=== PATIENT | female | born 1960 | race Caucasian/White ===

== ENCOUNTER → 2025-01-23 07:05 | Outpatient (REF) | payer OTHER, SELFPAY | LOC: WDC 07:05 | PROVIDERS: ATTENDING PHYSICIAN Internal Medicine | DX: Z12.39 Encounter for other screening for malignant neoplasm of breast (principal); Z12.31 Encounter for screening mammogram for malignant neoplasm of breast | CPT/HCPCS: 77063; 77067 ==

== ENCOUNTER 2025-01-26 06:27 | Day surgery (SDC) | payer OTHER, SELFPAY | END 2025-01-26 12:08 | disposition home or self-care (01) | LOC: GI 06:27 | PROVIDERS: ATTENDING PHYSICIAN Internal Medicine Gastroenterology | DX: Z12.11 Encounter for screening for malignant neoplasm of colon (principal); K57.30 Diverticulosis of large intestine without perforation or abscess without bleeding; K64.0 First degree hemorrhoids; D12.5 Benign neoplasm of sigmoid colon; K63.5 Polyp of colon | CPT/HCPCS: 45385; 45380; 88305 ==

== ENCOUNTER → 2025-04-02 10:22 | Outpatient (REF) | payer OTHER, SELFPAY | LOC: RAD 10:22 | PROVIDERS: ATTENDING PHYSICIAN Internal Medicine | DX: R13.10 Dysphagia, unspecified (principal) | CPT/HCPCS: 74221 ==

== ENCOUNTER 2025-04-16 06:25 | Day surgery (SDC) | payer OTHER, SELFPAY | END 2025-04-16 14:43 | disposition home or self-care (01) | LOC: GI 06:25 | PROVIDERS: ATTENDING PHYSICIAN Internal Medicine Gastroenterology | DX: C15.5 Malignant neoplasm of lower third of esophagus (principal); R13.10 Dysphagia, unspecified; K44.9 Diaphragmatic hernia without obstruction or gangrene | CPT/HCPCS: 43239; 88305 ==

== ENCOUNTER → 2025-04-18 08:03 | Outpatient (REF) | payer OTHER, SELFPAY | LOC: RAD 08:03 | PROVIDERS: ATTENDING PHYSICIAN Internal Medicine Gastroenterology; FAMILY PHYSICIAN Internal Medicine | DX: K22.89 Other specified disease of esophagus (principal) | CPT/HCPCS: 71260; 74177; Q9967 ==

== ENCOUNTER 2025-04-26 06:20 | Day surgery (SDC) | payer OTHER, SELFPAY ==
[2025-04-26 12:44] VITALS: BMI 26.4
[2025-04-26 12:49] VITALS: BP 140/85; BMI 26.4
[2025-04-26 17:02] VITALS: BP 132/82
[2025-04-26 17:15] VITALS: BP 143/74
[2025-04-26 17:30] VITALS: BP 157/85
[2025-04-26 17:45] VITALS: BP 143/66
== END 2025-04-26 17:57 | disposition home or self-care (01) ==
LOC: SDS 06:20
PROVIDERS: ATTENDING PHYSICIAN Internal Medicine Gastroenterology; FAMILY PHYSICIAN Internal Medicine
DX: C15.4 Malignant neoplasm of middle third of esophagus (principal); R59.0 Localized enlarged lymph nodes
CPT/HCPCS: 43259

== ENCOUNTER → 2025-05-02 13:19 | Outpatient (REF) | payer OTHER, SELFPAY ==
[2025-05-02 15:39] LABS: Blood Urea Nitrogen 10 mg/dl (7-17); Calcium 9.6 mg/dl (8.4-10.2); Carbon Dioxide 26 mmol/L (22-30); Chloride 102 mmol/L (98-107); Glucose 96 mg/dl (70-99); Potassium 4.3 mmol/L (3.5-5.1); Sodium 137 mmol/L (135-145); eGFR > 60.00
== END ==
LOC: REG 13:19
PROVIDERS: ATTENDING PHYSICIAN Physician Assistant; FAMILY PHYSICIAN Internal Medicine
DX: C15.9 Malignant neoplasm of esophagus, unspecified (principal)
CPT/HCPCS: 36415; 71260; 80048; Q9967

== ENCOUNTER 2025-09-10 08:16 | Inpatient (IN) | payer OTHER, SELFPAY ==
[2025-09-07] VITALS (9 sets, daily range): BP systolic 93–133; BP diastolic 57–82; BMI 27.1
[2025-09-07] MEDS: DILAUDID 1 MG IV ×3 (06:52→21:08)
[2025-09-07] MEDS: VALIUM INJECTION 5 MG IV (06:52)
--- NOTE | 2025-09-07 06:54 | ED.GENMED ---
History of Present Illness
General
Chief Complaint: Back Pain
Time Seen by Provider: 09/07/25 06:36
History of Present Illness
History of Present Illness:
64-year-old female with history of esophageal carcinoma status post chemo and esophagectomy 3 weeks ago with J-tube in place presenting to the emergency department for diffuse back pain. Patient notes that she has had intermittent coughing issues
after her esophagectomy and prior to arrival had a coughing fit. She then subsequently had diffuse back pain, which is her reason for visit to the emergency department today. She did not take any pain medications prior to arrival. She reports
diffuse bilateral back pain and chest wall pain. Denies abdominal pain or difficulty breathing. Notes that she had been taking Dilaudid in the hospital for postoperative pain. She took tramadol prior to arrival without relief. Denies fever.
Denies focal weakness or numbness to her extremities. Denies issues with defecation or urination. Denies additional acute medical complaints.
Phy Exam
Physical Exam
Physical Exam:
General: Well-appearing, no clinical signs of dehydration, nontoxic and in no acute distress
HEENT: protecting airway
Neck: appears supple
CV: Normal heart rate, tachycardic
Resp: No accessory muscle use, no increased work of breathing, lungs clear to auscultation bilaterally
Abd: Soft and non-distended, no tenderness to palpation, J-tube in place
Extremities: No deformities, no swelling. Diffuse tenderness to palpation of the thoracic back. Minimal midline tenderness with focal tenderness to the musculature. Generalized chest wall tenderness on palpation. No crepitus. No overlying skin
changes.
: deferred
Rectal: deferred
Psych: Normal affect
Skin: Intact
Course
Orders/Labs/Results
Orders:
Orders
09/07/25 06:41
Electrocardiogram (*1) Urgent
Reason for Study: Chest Pain
EKG- Treatment ONCE
HYDROmorphone [Dilaudid] 1 mg IV NOW STA
diazePAM [Valium Injection] 5 mg IV NOW STA
09/07/25 07:28
CT Chest PE Study Urgent
Comment:
Reason For Exam: diffuse chest and back pain
09/07/25 07:54
Complete Blood Count/With Diff Urgent
09/07/25 08:28
Comprehensive Metabolic Panel Urgent
09/07/25 09:54
HYDROmorphone [Dilaudid] 1 mg IV NOW STA
Abnormal Lab Results
09/07/25 09/07/25
07:54 08:28
WBC 14.3 H 10^3/uL
(4.8-10.8)
RBC 3.43 L 10^6/uL
(4.20-5.40)
Hgb 10.4 L g/dL
(12.0-16.0)
Hct 31.5 L %
(37.0-47.0)
RDW 16.5 H %
(11.5-14.5)
Abs Immat Gran (auto) 0.1 H 10^3/uL
(0-0.05)
Absolute Neuts (auto) 13.5 H 10^3/uL
(1.4-6.5)
Absolute Lymphs (auto) 0.1 L 10^3/uL
(1.2-3.4)
Neutrophils % 94.5 H %
(42.2-75.2)
Lymphocytes % 0.9 L %
(20.5-51.1)
Sodium 130 L mmol/L
(135-145)
Chloride 96 L mmol/L
(98-107)
Creatinine 0.5 L mg/dL
(0.6-1.0)
Glucose 153 H mg/dl
(70-99)
09/07/25 07:54
09/07/25 08:28
Vital Signs
Initial and Last Documented VS:
Initial Vital Signs
Temp Pulse Resp BP Pulse Ox
98.7 F 143 26 133/82 93
09/07/25 06:13 09/07/25 06:13 09/07/25 06:13 09/07/25 06:13 09/07/25 06:13
Last Documented Vital Signs
Temp Pulse Resp BP Pulse Ox
98.7 F 135 41 100/60 95
09/07/25 06:13 09/07/25 10:25 09/07/25 07:00 09/07/25 07:00 09/07/25 09:04
MDM/Problems Addressed
MDM/Problems Addressed:
64-year-old female with history of esophageal carcinoma status post esophagectomy 3 weeks ago presenting for diffuse back pain after a coughing fit. Vital signs on arrival are significant for tachycardia, however patient uncomfortable on arrival
secondary to pain.
On exam, patient is in no acute distress. Regarding patient's presenting back pain, ultimately suspect muscle spasm and musculoskeletal strain. Notes that it starting after a coughing fit, which she has had issues with since her esophagectomy. No
acute respiratory distress. No focal tenderness with diffuse tenderness to the thoracic musculature. Minimal tenderness to the midline thoracic spine. No step-offs. No tenderness to the abdomen. Mild generalized tenderness to the chest wall.
No overlying skin changes. No crepitus. Patient is requesting Dilaudid for pain. Will start with Dilaudid and Valium for suspected spasming component. Will obtain x-ray of the thoracic spine and chest x-ray and continue to monitor for any
improvement.
07:30 -Dr. Alfonso from [facility] called about patient, thoracic fellow. She at this time is advising CT PE study. Feel reasonable given postop history. Additionally, presenting tachycardia, however do suspect more of pain response.
10:55 - CT of the chest without PE, however there is mention of bilateral pleural effusions and compressive atelectasis. Images were sent to attending physician and case discussed directly with attending physician, Dr. Heather Mckenzie. She does not feel
that the collections are significantly changed from prior. However, patient remains tachycardic and oxygen dependent. Again could be related to pain medication, versus fluid status with atelectasis. Recommendation is for observation admission
overnight. If symptoms persist, may indicate need for transfer to [facility], however [facility] and Dr. Mckenzie will continue to follow. Patient and daughter updated.
*Pulse Oximetry
SaO2: 93
Oxygen Mode of Delivery: Room air
Patient hypoxic: no
*Critical Care Note
Total Time (30-74mins, 75-104mins- exclusive of procedures): 62
comment:
The high probability of a clinically significant, sudden or life threatening deterioration of the cardiopulmonary system(s) required my full and direct attention, intervention and personal management. The aggregate critical care time was 62 minutes.
This time is in addition to time spent performing reported procedures but includes the following:
[x] Data Review and interpretation
[x] Patient assessment and monitoring of vital signs
[x] Documentation
[x] Medication orders and management
ED Attending Note
-
Portions of this chart may have been created with voice recognition software.� Occasional wrong word or��sound alike� substitutions may have occurred due to the inherent limitations of voice recognition software.
Discharge Plan
Departure
Patient Disposition: Admit
Date of Disposition: 09/07/25
Time of Disposition: 11:19
Presentation/result/management discussed w/ accepting MD/DO: Hospitalist
Patient with high blood pressure during this ER visit?: No
Condition: Fair
Discharge Problem:
Back pain, Pleural effusion
Referrals:
Bryan Fulton DO [Family Provider, Internal Medicine]
Interventions
Interventions:
*Risk Screen - Suicide Last Done: 09/07/25 06:17
*General Assessment Last Done: 09/07/25 06:17
*Neglect/Abuse Screening Last Done: 09/07/25 06:17
*ED- Fall Risk Assessment Last Done: 09/07/25 06:17
*ED COVID-19 Vaccine History Last Done: 09/07/25 06:17
*ED Influenza Vaccine History Last Done: 09/07/25 06:17
Discharge Date and Time
Print Language: SWEDISH
[2025-09-07 08:04] LABS: Hematocrit 31.5 % (37.0-47.0); Hemoglobin 10.4 g/dL (12.0-16.0); Mean Corp Hgb Conc. 33.0 g/dL (33.0-37.0); Mean Corpuscular Volume 91.8 fL (81.0-99.0); Nucleated Red Blood Cells % 0 %; Platelet Count 317 10^3/uL (130-400); Red Cell Dist. Width 16.5 % (11.5-14.5)
[2025-09-07 08:56] LABS: ALT (SGPT) 16 U/L (0-35); AST (SGOT) 17 U/L (14-36); Albumin 3.6 g/dl (3.5-5.0); Alkaline Phosphatase 67 U/L (38-126); Blood Urea Nitrogen 16 mg/dl (7-17); Calcium 9.0 mg/dl (8.4-10.2); Carbon Dioxide 27 mmol/L (22-30); Chloride 96 mmol/L (98-107); Estimated Creatinine Clearance 89 ml/min; Glucose 153 mg/dl (70-99); Potassium 4.2 mmol/L (3.5-5.1); Sodium 130 mmol/L (135-145); Total Protein 6.5 g/dl (6.3-8.2); eGFR > 60.00
--- NOTE | 2025-09-07 12:16 | HPS.HSE ---
Family Physician
-
Family Physician: Bryan Fulton
Chief Complaint
-
Chest/Back Pain
History of Present Illness
Ragini is a 64 year old female with a past medical history of invasive SCC of the esophagus, s/p chemo/radiation (finished July 13 2025) and 3 weeks s/p esophagectomy at [facility], J-tube placement in May 2025, h/o Afib during chemotherapy
(previously on Amiodarone; no discontinued), post-op BL pleural effusions who presented to the [facility] with concerns for acute chest/back pain that started last night.
She reports that ever since her esophagectomy 3 weeks ago she has had a chronic cough, productive of clear, frothy discharge. Prior imaging was done with Dr. Mckenzie at [facility] and there were no concerns expressed at that time. During that time she had no
complaints of fevers, chills, trouble breathing, or other systemic symptoms. She had never coughed up blood. She has been sleeping at a 45 degree angle per her surgeon. Then, she woke up in the early AM on 09/07 with gagging, retching, and multiple
episodes of small volume vomitus that was clear, frothy, non-purulent/mucoid, and nonbloody. She felt pain in her chest and back bilaterally, that was worse on the L compared to the R. The pain was 10/10, throbbing in nature and diffuse. She had no
shortness of breath at that time. She took one tramadol which did not help at all, after which she presented to the ED.
On arrival to the ED she was afebrile, normotensive, with tachycardia, tachypnea, and hypoxia. she was placed on O2 NC up to 6L. She was given po Valium/IV Dilaudid which helped some. [facility] team was contacted and CT PE was recommended. CT PE was
negative for PE, showing BL pleural effusions (stable per independent read by [facility] Dr. Heather Mckenzie). ECG was done which showed sinus tachycardia. She had mild leukocytosis of 14.3, Na 130, mild anemia of 10.4. Pain reduced to 6/10.
Of note, she has been eating soft/bite sized food per oral with supplemental tube feeds without issue or prior concern for aspiration. She was seen by solar energy specialist one week prior who had no concerns. There are no concerns for dysphagia, odynophagia.
Medical History
Past Medical History
Past Medical History: Reports Arrhythmia (had episode of afib during cancer tx -- resolved) and Cancer (s/p esophagectomy 3 weeks ago)
Past Surgical History: Reports Appendectomy
Additional Past Surgical History:
Esophagectomy, J-tube placement, Melanoma removal
Social History
Tobacco: Non-smoker
Alcohol: None
Drug: None
Personal:
Living: With Family
Family History
Family History: Not pertinent
Allergies / Home Medications
Allergies reflects when Allergies were last updated in [facility].
Home Medications with original date entered in [facility]
Allergy/Medication List:
Allergies
Allergy/AdvReac Type Severity Reaction Status Date / Time
meperidine Allergy Rash Verified 09/07/25 06:30
morphine Allergy Rash Verified 09/07/25 06:30
oxycodone Allergy Rash Verified 04/26/25 12:40
Home Medications
famotidine 40 mg/5 mL (8 mg/mL) oral suspension 20 mg feeding tube DAILY Gastrointestinal Issue 09/07/25
polyethylene glycol 3350 17 gram oral powder packet (Miralax) 17 g feeding tube DAILY Constipation 09/07/25
tramadol 50 mg tablet 50 mg feeding tube QIDPRN PRN moderate pain 09/07/25
Review of Systems
-
History Source: Patient
A 12 point ROS was completed and negative except as noted: Yes
Constitutional: Denies Fever, Weight Loss, Night Sweats or Chills
EENT: Reports No Symptoms
Respiratory: Reports Cough (productive of clear, frothy sputum, nonbloody); Denies Hemoptysis or Trouble Breathing
Cardiac: Reports Chest Pain; Denies Diaphoresis, Palpitations or Syncope
Abdomen/GI: Reports Vomiting; Denies Abdominal Pain, Nausea, Diarrhea, Constipated or Black Stools
: Reports No Symptoms
Musculoskeletal: Reports No Symptoms
Skin: Reports No Symptoms
Neurological: Reports No Symptoms
Endocrine: Reports No Symptoms
Hematologic/Lymphatic: Reports No Symptoms
Psych: Reports No Symptoms
Physical Exam
Vital Signs
Vital Signs
Temp Pulse Resp BP Pulse Ox
98.7 F 137 39 102/62 97
09/07/25 06:13 09/07/25 11:30 09/07/25 11:30 09/07/25 11:00 09/07/25 11:30
Physical Exam
General: Well Developed, Well Nourished, Appears in Distress and Pain; No Respiratory Distress or Chills
HEENT: NormoCephalic, Anicteric, Atraumatic, PERRLA, Cleona Conjunctivae, No Ptosis, Nose Appears Normal, Ears Appear Normal and Oxygen
Respiratory: Non Labored Respirations and Other (clear anteriorly with no wheezing, rales, rhonchi. Tenderness to lower-rib cage; pain worse with deep breaths BL.)
Cardiac: S1/S2, Regular Rhythm and Tachycardia; No Irregular Rhythm, Murmur, Rub or Peripheral Edema
Breast: Deferred by me
GI: Soft, Non Tender, Non Distended, Normal Bowel Sounds and Peg Tube (J tube)
Rectal: Deferred by Provider
Genito-urinary: Deferred by me
Musculoskeletal: No Clubbing, No Cyanosis and No Edema
Skin: Warm, Dry and IV/Catheter Site
Neuro: AO x 3
Psych: Calm and Intact Judgment/Insight
Laboratory Results
-
09/07/25 07:54
09/07/25 08:28
Laboratory Results
Total Bilirubin 0.8 mg/dl (0.2-1.3) 09/07/25 08:28
AST 17 U/L (14-36) 09/07/25 08:28
ALT 16 U/L (0-35) 09/07/25 08:28
Alkaline Phosphatase 67 U/L (38-126) 09/07/25 08:28
Impression/Plan
-
Ragini is a 64 year old female with a past medical history of invasive SCC of the esophagus, s/p chemo/radiation (finished July 13 2025) and 3 weeks s/p esophagectomy at [facility], J-tube placement in May 2025, h/o Afib during chemotherapy
(previously on Amiodarone; no discontinued), post-op BL pleural effusions who presented to the [facility] with concerns for acute intractable chest/back pain associated with gagging/retching, found to be hypoxic requiring 6L NC.
#Acute Hypoxic Respiratory Insufficiency
Most likely secondary to tachypnea and shallow breaths due to pain
- requiring 6L NC on admission
- wean as tolerated for O2 sat 90%
- infectious workup pending
- COVID/Flu/RSV ordered
- pro tyrel pending
- no indication for abx at this time
#BL Pleural Effusions
Present on admission CT imaging, subacute/post surgical, may have new infectious component
- Leukocytosis -- most likely reactive to pain; infectious workup pending
- no prior history of CHF -- will obtain echo
#Intractable Chest/Back Pain
DDX include MSK related vs. Tawny-Sauer vs. PNA vs. dissection vs. ACS vs. other
- CT PE negative
- ACS unlikely
- ECG showing sinus tach
- trops pending
- Echo ordered
- proBNP ordered
- will increase to 1.5mg dilaudid q4hprn for severe pain, home tramadol for moderate pain
- will try dose of Flexeril given probable msk component
- will add heating pad
- if pain does not improve, may transfer to [facility]
#Esophageal SCC
#J-tube Placement
s/p esophagectomy x3 weeks ago, s/p chest wall radiation & systemic chemotherapy x6 weeks
- Known to Dr. Heather Mckenzie at [facility]
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
- will order speech eval to r/o aspiration
- keep head of bed to 45 degrees
- IDDSI 6 soft/bite sized for now
- c/w supplemental tube feeds; family can bring in their own
- c/w home famotidine/miralax via tube
#Anemia, likely of chronic disease vs. MARCELLA vs. Other
- hgb 10.4, no signs of active bleeding
- observe CBC, transfuse prn
- follow up OP with oncology/PCP
Code Status: Full Code
DVT PPx: Lovenox SC
[2025-09-07 13:14] LABS: Troponin I 0.017 ng/ml
[2025-09-07 13:24] LABS: COVID-19 Antigen Negative (Negative)
[2025-09-07] MEDS: DILAUDID 1.5 MG IV ×2 (13:32→17:39)
[2025-09-07] MEDS: NSS 1000 IV (13:37)
[2025-09-07] MEDS: FLEXERIL 5 MG PO (14:13)
[2025-09-07 14:45] LABS: Procalcitonin 16.16 ng/ml (0.0-0.25)
--- NOTE | 2025-09-07 15:23 | CON.PUL ---
Consultation
Consultation Request
Date/Time Consultation Requested: 09/07/25
Date/Time Consultation Performed: 09/07/25
Performing Provider: Nery
Reason for Consultation: Effusions
Medical History
-
History of Present Illness:
64-year-old female with history of recently diagnosed esophageal squamous cell carcinoma s/p esophagectomy/J tube at [facility] (follows with Dr. Heather Mckenzie), melanoma resection x 2, presenting to ER with a complaint of diffuse back
pain.� States that she has had intermittent coughing issues since her esophagectomy with a significant episode of coughing prior to arrival.� She had been exclusively using J-tube since May but in the past week her diet was advanced. There had
been some coughing observed with sip trials by the RN.
In the ED, was noted to be tachycardic and hypoxemic requiring 6 L O2 though otherwise afebrile and stable.� Initial labs with WBC 14.3, hemoglobin 10.4, sodium 130, chloride 96.� ECG with sinus tachycardia, right sided intraventricular conduction
delay and T wave inversions in the anterolateral leads.� CT PE protocol without signs of pulmonary emboli, showed signs of subsegmental atelectasis and small bilateral effusions unchanged from previous studies, mild anterior pericardial thickening.
Was ordered IV fluids and given 5 mg diazepam and 1 mg IV Dilaudid in the ED. Admitted to for presumed PNA.
Past Medical History
Past Medical History: Other (see list below)
Social History
Tobacco: Non-smoker
Alcohol: None
Drug: None
Family History
Family History: Reviewed & Not Pertinent
Allergies / Home Medications
Allergies
Allergy/AdvReac Type Severity Reaction Status Date / Time
meperidine Allergy Rash Verified 09/07/25 06:30
morphine Allergy Rash Verified 09/07/25 06:30
oxycodone Allergy Rash Verified 04/26/25 12:40
Home Medications
�Medication �Instructions �Recorded �Confirmed �Last Taken �Type
famotidine 40 mg/5 mL (8 mg/mL) 20 mg feeding tube DAILY 09/07/25 09/07/25 Unknown History
oral suspension Gastrointestinal Issue
polyethylene glycol 3350 17 gram 17 g feeding tube DAILY 09/07/25 09/07/25 Unknown History
oral powder packet (Miralax) Constipation
tramadol 50 mg tablet 50 mg feeding tube QIDPRN PRN 09/07/25 09/07/25 09/07/25 History
moderate pain
Review of Systems
-
History Source: Patient and Family
All other systems: Negative unless noted
Vitals / Labs / Diagnostic Testing
Vital Signs
Temp Pulse Resp BP Pulse Ox
98.0 F 141 19 113/79 95
09/07/25 15:04 09/07/25 15:04 09/07/25 15:04 09/07/25 15:04 09/07/25 15:04
Lab Data
09/07/25 07:54
09/07/25 08:28
Microbiology
09/07/25 12:26 Nasal Swab Influenza Types A & B (AG) - Final
Negative for Influenza A & B, NAAT
Negative results must be combined with clinical observations
and patient history.
Nucleic Acid Amplification test (NAAT)performed on the
[employer] ID NOW platform.
09/07/25 12:26 Nasal Swab Respiratory Syncytial Virus Ag - Final
Negative for Respiratory Syncytial Virus.
A false negative result may be obtained with a specimen
collected early in the acute phase. If symptoms persist, a
new specimen should be tested.
Diagnostic Testing:
Physical Exam
-
HEENT: Normocephalic, Anicteric and Moist Mucous Membranes
Cardiovascular: S1/S2 and Regular Rhythm
Respiratory: Clear, Non-Labored Respirations and Other (decreased at bases)
GI: Soft, Non Distended and Non Tender
Neurology: Awake, Alert and Other (Lethargic)
Skin: Warm and Dry
General: Comfortable and Other (NAD)
Assessment
-
64-year-old female with history of recently diagnosed esophageal squamous cell carcinoma s/p esophagectomy/J tube at [facility] (follows with Dr. Heather Mckenzie), melanoma resection x 2, presenting to ER with a complaint of diffuse back
pain.� States that she has had intermittent coughing issues since her esophagectomy with a significant episode of coughing prior to arrival.� She had been exclusively using J-tube since May but in the past week her diet was advanced. There had
been some coughing observed with sip trials by the RN. In the ED, was noted to be tachycardic and hypoxemic requiring 6 L O2 though otherwise afebrile and stable.� Initial labs with WBC 14.3, hemoglobin 10.4, sodium 130, chloride 96.� ECG with
sinus tachycardia, right sided intraventricular conduction delay and T wave inversions in the anterolateral leads.� CT PE protocol without signs of pulmonary emboli, showed signs of subsegmental atelectasis and small bilateral effusions unchanged
from previous studies, mild anterior pericardial thickening. Was ordered IV fluids and given 5 mg diazepam and 1 mg IV Dilaudid in the ED. Admitted to for presumed PNA.
Acute hypoxic respiratory failure, O2 alta 84%
Acute on chronic cough
Back and chest discomfort
BL Effusions w/ compressive atelectasis
Elevated proBNP, Leukocytosis, r/o PNA--suspect aspiration
Anemia, likely chronic
Hyponatremia
Hyperglycemia
Conditions present MIDDLE STITCHER
Chronic dysphagia status post EGD 04/26/2025-large fungating/ulcerating mass found in the middle third of the esophagus
Path positive for invasive squamous carcinoma, status post esophagectomy 3 weeks ago
Follows at [facility], status post J-tube
dvt left arm (2000)
visceral tear right eye
melanoma s/p removal 2007,2012
hypertension
hyperlipidemia
Appendectomy
benign breast bx 1976
Plan
Hypoxemia noted on arrival, O2 alta 84%, she is on 6L
No oxygen was needed at baseline, she denies history of lung disease in the past
Given her lethargy, will obtain ABG w/ lactate
Home O2 evaluation
Suspect patient has aspiration PNA, diet advanced 1 week prior to admission
Coughing noted on exam, with sips
CXR/CT obtained indicating bibasilar consolidation w/ compressive atelectasis
Other imaging reviewed from April, but she had recent imaging last week at [facility] per family that was reportedly normal
Keep NPO, Speech eval
Aspiration precautions
Agree with IV abx
Airway clearance measures
Recent esophagectomy 3 weeks prior
Has J-tube in place
Completed at [facility], family has close visits weekly at their offices
The family has concerns about J-tube management and leakagev
Effusions noted, r/o CHF
ProBNP negative on admission
ECHO results pending
Denies any prior known history of lung disease, lifelong non-smoker
H/o DVT in past, CTA neg for PE
DVT ppx
Reviewed case with care team and low threshold for transfer
We will follow
Diagnostic Data
Chest X-Ray:
CT Scan: CHEST 09/07/25- No findings to suggest central pulmonary embolism. Recent prior esophagectomy with gastric pull-up with accompanying large consolidations in the lower lobes bilaterally most likely representing subsegmental atelectasis and
small bilateral pleural effusions. Mild anterior pericardial thickening, cannot exclude tiny pericardial effusion.
05/02/25- Severe circumferential diffuse esophageal wall thickening. This can be seen with esophagitis or a mural mass. Correlation recent biopsy results. Probable small adjacent hematoma along the right lateral wall of the distal esophagus. No
evidence of esophageal leak. Correlation with outside PET/CT report recommended
Echo: pending
PFT's:
Reports and relevant images were personally reviewed.
Total time spent on this consultation __75__ minutes which includes review of history, physical exam, medications, laboratory data, personal review of imaging, extensive review of outpatient records, discussion with care team and respiratory therapy.
[2025-09-07] MEDS: ROCEPHIN 1000 MG IV (16:11)
[2025-09-07] MEDS: STERILE WATER FOR INJECTION 10 ML IV (16:11)
[2025-09-07] MEDS: ZITHROMAX 500 MG TUBE (16:17)
[2025-09-07 16:34] LABS: B.E. 0 mmol/L; HCO3 26.4 mmol/L (21-28); O2 Saturation % 97.5 % (94-98); PCO2 50 mmHg (32-35); PO2 78 mmHg (83-108)
[2025-09-07] MEDS: VENTOLIN NEBULES 2.5 MG INH (16:36)
[2025-09-07 16:48] LABS: Troponin I 0.019 ng/ml
--- NOTE | 2025-09-07 17:00 | PTCARENOTE ---
patient noted to be in sinus tachycardia upon admission to . MD made aware patients heart rate in 130s. Resident and Dr Kapoor both notified that patients heart rate has increased to the 140s and peaking at 150s. No new orders at this time. Patient
resting in bed sating 94% on 6L of NC. No new complaints
[2025-09-07] MEDS: LOVENOX 40 MG SC (17:12)
[2025-09-08] VITALS (8 sets, daily range): BP systolic 93–114; BP diastolic 51–79
[2025-09-08 00:39] LABS: Troponin I 0.023 ng/ml
[2025-09-08] MEDS: VALIUM INJECTION 2 MG IV (00:50)
--- NOTE | 2025-09-08 00:54 | W.PN.UPDATE ---
Addendum entered and electronically signed by WINNIE Wood 09/08/25 06:49:
Hgb down to 8.2 from 10 yesterday. Will add type and screen.
Original Note:
Update Note
Progress Note Update
Called to evaluate Jtube site which is leaking profusely. Tube placed at [facility] and was changed at their office on Wednesday this past week. Lowered TF rate in half for tonight and changed meds to IV form since patient is also NPO due to suspicion of
aspiration PNA. Back pain continues and I added Valium IV prn for back pain/spasm. Heating pad also utilized overnight.
--- NOTE | 2025-09-08 01:09 | PTCARENOTE ---
HABITAT CONSERVATION PLANNER notified @[id number] regarding patient remaining tachy in the 140s. HABITAT CONSERVATION PLANNER also made aware that lactic acid was 2.8 this evening therefore requesting redraw. HABITAT CONSERVATION PLANNER also made aware that patient's JTube was excessively leaking and was reinforced with dsg with
some improvement and was asked to see patient. HABITAT CONSERVATION PLANNER also made aware patient's BP was in the 90s and still complaining of pain and only had prn dilaudid ordered.
HABITAT CONSERVATION PLANNER in to see patient and Jtube site assessed. HABITAT CONSERVATION PLANNER made aware patient mouth was being swabbed with complaints of dry mouth. HABITAT CONSERVATION PLANNER made aware lactic acid was now 3.8- New orders received for STAT IV 2mg Valium to give 0.4ml, prn valium 2 mg 0.4ml q6h,
wound consult for ostomy, NPO ordered with swabs only, Tube feeding rate decreased to 30 ml/hr, tramadol placed on hold, new order for IV Zithromax.
[2025-09-08] MEDS: ZITHROMAX 252.5 MG IV (01:26)
[2025-09-08] MEDS: DILAUDID 1.5 MG IV ×4 (02:59→20:54)
[2025-09-08 04:06] LABS: Troponin I 0.025 ng/ml
[2025-09-08 04:11] LABS: ALT (SGPT) 11 U/L (0-35); AST (SGOT) 14 U/L (14-36); Albumin 2.1 g/dl (3.5-5.0); Alkaline Phosphatase 34 U/L (38-126); Blood Urea Nitrogen 29 mg/dl (7-17); Calcium 6.3 mg/dl (8.4-10.2); Carbon Dioxide 22 mmol/L (22-30); Chloride 107 mmol/L (98-107); Estimated Creatinine Clearance 53 ml/min; Glucose 115 mg/dl (70-99); Potassium 4.0 mmol/L (3.5-5.1); Sodium 133 mmol/L (135-145); Total Protein 4.4 g/dl (6.3-8.2); eGFR > 60.00
[2025-09-08 04:14] LABS: Hematocrit 25.8 % (37.0-47.0); Hemoglobin 8.2 g/dL (12.0-16.0); Mean Corp Hgb Conc. 31.8 g/dL (33.0-37.0); Mean Corpuscular Volume 95.9 fL (81.0-99.0); Platelet Count 229 10^3/uL (130-400); Red Cell Dist. Width 16.0 % (11.5-14.5)
--- NOTE | 2025-09-08 04:22 | PTCARENOTE ---
Addendum entered by Cheli Marie RN 09/08/25 05:23:
RECONCILIATION SPECIALIST notified of critical calcium of 6.3 @0416, IV calcium gluconate 2 gram @100 mls/hr ordered, plan of care continues.
Original Note:
@0139 RECONCILIATION SPECIALIST increased IV fluids to 150 ml/hr. Patient @0250 continues with back pain but did report Valium being helpful. RECONCILIATION SPECIALIST ordered rpt lactic acid @0303 with result of 2.5-
RECONCILIATION SPECIALIST notified of critical calcium of 6.3 @0416, IV calcium gluconate 2 gram @10 mls/hr ordered, plan of care continues.
[2025-09-08] MEDS: NSS 1000 IV ×3 (04:42→16:04)
[2025-09-08] MEDS: CALCIUM GLUCONATE 100 IV ×2 (04:46→10:43)
[2025-09-08 05:16] LABS: Absolute Neutrophils -Man Diff 7.8 10^3/uL (1.4-6.5)
[2025-09-08 05:17] LABS: Normal RBC Morphology No; Platelets Checked Yes
[2025-09-08 05:18] LABS: Macrocytosis 1+; Poikilocytosis 1+; Target Cells 1+
[2025-09-08 05:19] LABS: Anisocytosis 1+; Total Cells Counted 100
[2025-09-08] MEDS: PEPCID 20 MG IV (08:14)
--- NOTE | 2025-09-08 09:13 | VATNOTE ---
Patient with drop in hgb, uncontrolled pain, critical calcium and limited venous access. Patient with need for additional access at this time, discussed risk/benefit of port access with family prior.
--- NOTE | 2025-09-08 09:29 | W.PN.HOSP.TC ---
Today's Communication/Plan
-
Continue ceftriaxone and azithromycin
1 L LR bolus then back to maintenance fluids
Start Flexeril and continue with Dilaudid for pain
IR consult for PEG tube malfunction
Continue with telemetry
Possible IMU upgrade
Assessment / Plan
Assessment / Plan
#Acute hypoxemic and hypercapnic respiratory failure
#Sepsis secondary to aspiration pneumonia
- Presented on room air though throughout ED course had worsening and required 6 L O2
- Status post esophagectomy; recently had diet advanced in the outpatient setting, frequent coughing fits
- WBC 14.8 on arrival, lactate peaked at 3.5, procalcitonin elevated at 16.16 concerning for pneumonia
- ABG with pH 7.33, pCO2 50, pO2 78, bicarb 26.4; shallow breathing from pain likely limiting ventilation
- Blood cultures obtained, sputum culture ordered; started on IV ceftriaxone and azithromycin
- Currently n.p.o. pending speech evaluation to assess swallowing, aspiration precaution
- Wean oxygen for SpO2 goal >90%
- Follow cultures, trend CBC + Temp
- Pulmonology appreciated
#Sinus tachycardia
- Likely is driven by pain, hypoxemia, possibly dehydration as well
- Has been significantly fast though regular and strips consistent with sinus tachycardia
- Will continue to address hypoxemia as above, pain as below; continue maintenance IVF
- Continue on telemetry, consider cardiology consult if not improving
- Avoid AVN blockade for now
#Intractable chest and back discomfort
- Unclear cause, presenting complaint; acute onset following coughing fits; possibly muscle strain or other MSK cause
- ECG did have T wave inversions though troponin negative; chest pain atypical for cardiac etiology
- Started on multimodal pain regimen with Dilaudid and cyclobenzaprine
- Continue to monitor pain and uptitrate doses of Dilaudid and cyclobenzaprine as needed
#Normocytic anemia
- Hemoglobin on arrival 10.4, down to 8.2 on repeat labs following IVF; no old labs to review
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
- Will continue to trend CBC and monitor for signs of bleeding
#Hypocalcemia
- Calcium on arrival was near 9, down to 6.3 following IV fluid resuscitation
- Suspect dilutional effect as albumin, total protein and elevated cell parameters downtrended
- Check vitamin D levels, ordered 2 g calcium gluconate today
- Continue to trend BMP and ionized calcium
#Esophageal squamous cell carcinoma
#Status post esophagectomy
#J-tube dysfunction
- Follows with Dr. Heather Rodgers at [facility]; s/p chemo and XRT
- Had esophagectomy 3 weeks ago with anastomosis, diet has been modified on OP basis
- Abides by strict aspiration precautions as OP, 45 degree head of bed elevation
- Supplemental tube feeds on hold due to J-tube site leakage
- Will consult IR for possible J-tube adjustment
Diet: N.p.o. pending speech and IR assessment of tube
DVT: SQ Lovenox
Code: Full code
Dispo: PT consulted, consider IMU transfer if hemodynamics not improved
Discussed with interventional radiology
Anticipated Discharge: > 48 hours
Subjective/Interval History
-
Date of Service: September 08, 2025
Seen and examined at the bedside. Overnight remained tachycardic, hemoglobin down trended to 8.2 with IV fluids. As of this morning blood pressure soft and remains tachycardic
White cell count downtrending with antibiotics. Cultures remain pending.
Patient still with significant pain this morning, states Flexeril did help
Objective Data
-
Labs:
Laboratory Results
09/08/25
03:33
WBC 9.3
Hgb 8.2 L D
Hct 25.8 L
Plt Count 229 D
Sodium 133 L
Potassium 4.0
Chloride 107
Carbon Dioxide 22
BUN 29 H
Creatinine 1.0
Glucose 115 H
Calcium 6.3 L* D
Total Bilirubin 0.3
AST 14
ALT 11
Alkaline Phosphatase 34 L
Vital Signs:
Vital Signs
Temp Pulse Resp BP Pulse Ox
98.2 F 149 17 99/63 95
09/08/25 07:00 09/08/25 07:00 09/08/25 07:00 09/08/25 07:00 09/08/25 07:00
I&O
09/07/25 09/08/25 09/09/25
06:59 06:59 06:59
Intake Total 1322 / 1322
Output Total 900 / 900
Balance 422 / 422
Review of Systems
-
History Source: Patient
All other systems: Reviewed and negative
Physical Exam
-
General: Well Developed, Well Nourished, Pain and Appears Chronically Ill
HEENT: Normocephalic, Atraumatic, Moist Mucous Membranes and Anicteric
Respiratory: Crackles, Non Labored Respirations and Other (Tachypneic, improved); Negative Wheezes, Rales, Rhonchi or Accessory Resp Muscle Use
Cardiac: Regular Rhythm, S1/S2 and Tachycardic; Negative Murmur, Rub or Gallop
GI: Soft, Nontender, Nondistended and Normal Bowel Sounds
Musculoskeletal: No Clubbing, No Cyanosis and No Edema
Skin: Warm, Dry and Other (Pale skin); Negative Rash
Neuro: AO x 3, Nonfocal/Grossly Intact and Central Nerve's Intact
Data Reviewed
-
Labs: Labs Reviewed by me, Discussed with Nurse and Discussed with Family
[2025-09-08 10:43] LABS: Vitamin D, 25-OH*** 23.7 ng/mL (30-80)
[2025-09-08] MEDS: LR 1000 IV (10:54)
[2025-09-08] MEDS: ROCEPHIN 1000 MG IV (10:58)
[2025-09-08] MEDS: STERILE WATER FOR INJECTION 10 ML IV (10:58)
[2025-09-08] MEDS: TORADOL 15 MG IV ×2 (11:22→20:55)
[2025-09-08] MEDS: NSS (PRESERVATIVE FREE) 10 ML IV (13:13)
[2025-09-08] MEDS: PROTONIX IV 40 MG IV (13:14)
--- NOTE | 2025-09-08 13:18 | PTOTSP ---
ST Acute Care Evaluation
Pt currently presents with clinical signs of suspected moderately-severe pharyngeal dysphagia as evident by difficulty initiating dry swallows and/or swallows with small bolus quantities, globus sensation in the pharynx with pureed solids that
requires thickened liquid wash to remediate/clear, and consistent weak coughing response with PO trials of thin liquids as well as seldom wet vocal quality and/or throat clearing with pureed solids - both of which are suspicious for airway invasion.
Pt is at an elevated risk for aspiration given her current overall lethargy and deconditioned status in the setting of her acute illness, cancer with recent chemo/XRT, recent major thoracic surgery, increased respiratory demands, weak reflexive (and
likely not protective) cough, and suspected baseline dysphagia per pt and pt's family report. Pt is also at an elevated risk for post-prandial aspiration given recent esophagectomy sx and hx of esophageal dysphagia.
Recommendations:
- Cautious diet initiation of PUREED SOLIDS with MILDLY THICK LIQUIDS via CUP SIPS ONLY; no straws.
- Meds whole or crushed in puree (or via J tube).
- Use J-tube for supplemental nutrition when able (consult registered dietitian for tube feed recommendations).
- AHRP - 1/2 small cup of ice chips every 1 hour ONLY AFTER ORAL CARE and WITH SUPERVISION only OUTSIDE OF MEAL TIME.
- Aspiration/reflux precautions: HOB upright for all PO intake and for 90 minutes after PO intake; slow intake rate; stop eating when full; sleep with HOB upright at 45 degrees; d/c PO intake if pt is in respiratory distress.
- COMMERCIAL CREDIT SPECIALIST to f/u re: diet tolerance, use of compensatory strategies, and to determine candidacy/appropriateness for an instrumental swallow study.
--- NOTE | 2025-09-08 14:00 | W.PN.UPDATE ---
Update Note
Progress Note Update
- IR asked to evaluate leaking J-tube, placed in May at [place] and managed at [facility] thereafter at thoracic surgeons office. On inspection, she has a 12F J-tube with ostomy bag to contain the leakage. Ostomy bag was placed/exchanged at the
surgeon's office last week. Inner retention balloon is not inflated because of pain and larger tube has been tried in the past but also caused too much discomfort. Explained to patient and family that my options are limited. We only carry 18F
J-tubes and without being able to insufflate the balloon I suspect that leakage will continue to be a problem. We could consult wound care for ostomy bag exchange? Would recommend referral back to [facility] for more definitive management.
[2025-09-08] MEDS: VENTOLIN NEBULES 2.5 MG INH (15:59)
[2025-09-08] MEDS: FLEXERIL PO ×2 (16:08→20:47)
--- NOTE | 2025-09-08 16:10 | PTCARENOTE ---
report received. aaox3. hr 120's bp 114/51. j tube leaking around ostomy bag. pt cleaned and wiped down. abd's and chucks provided to absorb leakage. pt refused ostomy change at this time. pt tachypneic, pulse ox >92% on 6l nc. 8l midflow provided
for comfort. resp therapy at bedside. neb provided. 1.5mg Dilaudid admin for pain. family at bedside. will monitor.
--- NOTE | 2025-09-08 16:58 | W.PN.PUL3 ---
Today's Communication / Plan
-
Continue with antibiotics for pneumonia
Follow-up blood cultures; collect sputum culture if she can produce a decent sample
If patient has worsening oxygen requirements or clinically deteriorates then would broaden antibiotics further to cover Pseudomonas and MRSA
Cut IVF in half as she has evidence of pleural effusion/volume overload on recent CT
May need to diurese, however hold off for now given her infection with procal >15
Continue Pepcid + PPI
Defer ostomy bag which is collecting bilious fluid from her J-tube to the hospitalist team
Pulmonary service will continue to follow along
Assessment
-
64-year-old female with history of recently diagnosed esophageal squamous cell carcinoma s/p esophagectomy/J tube at [facility] (follows with Dr. Heather Mckenzie), melanoma resection x 2, presenting to ER with a complaint of diffuse back
pain.� States that she has had intermittent coughing issues since her esophagectomy with a significant episode of coughing prior to arrival.� She had been exclusively using J-tube since May but in the past week her diet was advanced. There had
been some coughing observed with sip trials by the RN. In the ED, was noted to be tachycardic and hypoxemic requiring 6 L O2 though otherwise afebrile and stable.� Initial labs with WBC 14.3, hemoglobin 10.4, sodium 130, chloride 96.� ECG with
sinus tachycardia, right sided intraventricular conduction delay and T wave inversions in the anterolateral leads.� CT PE protocol without signs of pulmonary emboli, showed signs of subsegmental atelectasis and small bilateral effusions unchanged
from previous studies, mild anterior pericardial thickening. Was ordered IV fluids and given 5 mg diazepam and 1 mg IV Dilaudid in the ED. Admitted to for presumed PNA.
Acute hypoxic respiratory failure, O2 alta 84%
Acute on chronic cough
Back and chest discomfort s/p cough
BL Effusions w/ compressive atelectasis
Elevated proBNP, Leukocytosis, r/o PNA--suspect aspiration
Anemia, likely chronic
Hyponatremia
Hyperglycemia
Conditions present FAMILY RESOURCE SPECIALIST
Chronic dysphagia status post EGD 04/26/2025-large fungating/ulcerating mass found in the middle third of the esophagus
Path positive for invasive squamous carcinoma, status post esophagectomy 3 weeks ago
Follows at [facility], status post J-tube
dvt left arm (2000)
visceral tear right eye
melanoma s/p removal 2007,2012
hypertension
hyperlipidemia
Appendectomy
benign breast bx 1976
Plan
Hypoxemia noted on arrival, O2 alta 84%, she is on 8L now and has been TRX to IMU for closer monitoring on 09/08
No oxygen was needed at baseline, she denies history of lung disease in the past
Given her lethargy, blood gas obtained showing mild acute respiratory acidosis - -> continue to trend; avoid BiPAP if possible given aspiration risk
Home O2 evaluation prior to discharge
Suspect patient has aspiration PNA, diet advanced 1 week prior to admission
CXR/CT obtained indicating bibasilar consolidation w/ compressive atelectasis
Other imaging reviewed from April, but she had recent imaging last week at [facility] per family that was reportedly normal
Diet as per MILK PASTEURIZER - today recommended cautious diet initiation with pur�ed solids and mildly thick liquids, with J-tube to be used for nutrition
Aspiration precautions
Agree with IV abx (Rocephin + Zithromax)
Airway clearance measures (unfortunately she did not tolerate the vest); continue prn nebs
Recent esophagectomy 3 weeks prior
I suspect that her bibasilar consolidations and effusion are related to her recent surgery, although per documentation the patient had recent imaging last week prior to arrival at [facility] which was reportedly normal
Has J-tube in place - tube is leaking as balloon is not inflated; IR consulted but they were unable to help; may need to be handled at [facility] either s/p discharge or as a transfer to their facility
Completed at [place], family has close visits weekly at their offices
The family has concerns about J-tube management and leakage - -> defer to primary team
Effusions noted, r/o CHF
ProBNP negative on admission
ECHO pending
Denies any prior known history of lung disease, lifelong non-smoker
H/o DVT in past, CTA neg for PE
DVT ppx: LMWH
Reviewed case with care team and low threshold for transfer to [facility] vs other tertiary care center
We will follow
Diagnostic Data
Chest X-Ray:
CT Scan: CHEST 09/07/25- No findings to suggest central pulmonary embolism. Recent prior esophagectomy with gastric pull-up with accompanying large consolidations in the lower lobes bilaterally most likely representing subsegmental atelectasis and
small bilateral pleural effusions. Mild anterior pericardial thickening, cannot exclude tiny pericardial effusion.
05/02/25- Severe circumferential diffuse esophageal wall thickening. This can be seen with esophagitis or a mural mass. Correlation recent biopsy results. Probable small adjacent hematoma along the right lateral wall of the distal esophagus. No
evidence of esophageal leak. Correlation with outside PET/CT report recommended
Echo: pending
PFT's:
Reports and relevant images were personally reviewed.
Total time spent on this consultation __52__ minutes which includes review of history, physical exam, medications, laboratory data, personal review of imaging, extensive review of outpatient records, discussion with care team and respiratory therapy.
Subjective Data
-
Date of Service:
Date of Service: September 08, 2025
Chief Complaint: Pulmonary Follow Up
Subjective:
Pt seen and evaluated this AM (late note entry). HR 118, SpO2 91%, and BP 97/83. Her J-tube is leaking bilious fluid. She denies abd pain, Currently on 8L/min and is breathing comfortably, although she does feel SOB with exertion. She denies a
cough, abd pain, N/f/c.
Review of Systems
General: Other (Negative unless mentioned above)
Objective Data
Data Reviewed
Vital Signs / I&O / Oxygen:
Vital Signs
Temp Pulse Resp BP Pulse Ox
98.2 F 149 17 99/63 95
09/08/25 07:00 09/08/25 07:00 09/08/25 07:00 09/08/25 07:00 09/08/25 07:00
Intake and Output
09/07/25 09/08/25 09/09/25
06:59 06:59 06:59
Intake Total 1322 / 1322
Output Total 900 / 900
Balance 422 / 422
SaO2 95
Nasal Cannula flow liters per 6
minute
Physical Exam
General: Respiratory Distress (negative), Comfortable and Chills (negative)
HEENT: Normocephalic and Anicteric
Cardiovascular: S1-S2 and Peripheral Edema (negative)
Respiratory: Wheeze (negative), Crackles (bilateral), Rhonchi (bilateral), Non-Labored Respirations and Other (Diminished breath sounds bilaterally with poor inspiratory effort)
GI: Soft, Non Tender, Normal Bowel Sounds and Feeding Tube (jejunostomy tube with ostomy bag covering stoma and collecting bilious fluid)
Neurology: Awake (somnolent at times due to recent dilaudid administration) and Tremors (negative)
Skin: Warm, Dry, Cyanosis (negative), Jaundice (negative) and Rash
Labs/Micro/Reports
Lab Data
09/08/25 03:33
09/08/25 03:33
Laboratory Results
09/07/25
16:25
pH 7.33 L
pCO2 50 H
pO2 78 L
HCO3 26.4
O2 Delivery Level
Microbiology
09/07/25 12:26 Nasal Swab Influenza Types A & B (AG) - Final
Negative for Influenza A & B, NAAT
Negative results must be combined with clinical observations
and patient history.
Nucleic Acid Amplification test (NAAT)performed on the
[email or web address] platform.
09/07/25 12:26 Nasal Swab Respiratory Syncytial Virus Ag - Final
Negative for Respiratory Syncytial Virus.
A false negative result may be obtained with a specimen
collected early in the acute phase. If symptoms persist, a
new specimen should be tested.
[2025-09-08] MEDS: LOVENOX 40 MG SC (18:13)
--- NOTE | 2025-09-08 20:32 | PTCARENOTE ---
long conversations with and daughter about peg tube issues being unresolved. they want tube feeding restarted. addressed with provider who does not want to restart tube feeding tonight and said he would speak with family about it tomorrow
[2025-09-08] MEDS: OSCAL 500 + D PO (20:48)
--- NOTE | 2025-09-08 22:53 | PTCARENOTE ---
j tube was pouched again- tube feeds remain on hold but very large amount of light brown emesis smelling fluids leaking out of pt's abdomen- very difficult managing copious fluids coming out of belly. ax3 drowsy- pain managed with prns- bp soft
side. afebrile- sinus tach 120's
[2025-09-09] VITALS (45 sets, daily range): BP systolic 63–118; BP diastolic 32–89; BMI 24.7
[2025-09-09] MEDS: VALIUM INJECTION 2 MG IV (00:06)
--- NOTE | 2025-09-09 01:15 | PTCARENOTE ---
peg continues to leak despite numerous effort- hr improving now sinus tach 110- afebrile bp remains soft side of normal
--- NOTE | 2025-09-09 01:51 | PTCARENOTE ---
pt weaned to 5 liters - 97% on 5 liters
[2025-09-09] MEDS: ZITHROMAX 252.5 MG IV (01:56)
[2025-09-09] MEDS: NSS 1000 IV (02:46)
--- NOTE | 2025-09-09 04:07 | PTCARENOTE ---
am bed change with bed bath given pt now requires 12 liters midflow- no change in lung sounds- crackles at bases unchanged- remains orthopneic. pain is under control. hr back up in the 120's- afebrile
[2025-09-09] MEDS: DILAUDID 1.5 MG IV ×3 (04:18→19:15)
[2025-09-09 05:02] LABS: B.E. -1.0 mmol/L; HCO3 26.5 mmol/L (21-28); O2 Saturation % 97.7 % (94-98); PCO2 59 mmHg (32-35); PO2 77 mmHg (83-108)
[2025-09-09 05:08] LABS: Hematocrit 27.9 % (37.0-47.0); Hemoglobin 8.9 g/dL (12.0-16.0); Mean Corp Hgb Conc. 31.9 g/dL (33.0-37.0); Mean Corpuscular Volume 97.6 fL (81.0-99.0); Platelet Count 198 10^3/uL (130-400); Red Cell Dist. Width 15.9 % (11.5-14.5)
[2025-09-09 05:48] LABS: Vitamin D, 25-OH*** 21.6 ng/mL (30-80)
[2025-09-09 05:58] LABS: ALT (SGPT) 17 U/L (0-35); AST (SGOT) 28 U/L (14-36); Albumin 2.6 g/dl (3.5-5.0); Alkaline Phosphatase 69 U/L (38-126); Blood Urea Nitrogen 41 mg/dl (7-17); Calcium 9.7 mg/dl (8.4-10.2); Carbon Dioxide 29 mmol/L (22-30); Chloride 104 mmol/L (98-107); Estimated Creatinine Clearance 76 ml/min; Glucose 86 mg/dl (70-99); Iron 20 ug/dl (37-170); Magnesium 2.2 mg/dl (1.6-2.3); Potassium 4.9 mmol/L (3.5-5.1); Sodium 135 mmol/L (135-145); Total Iron Binding Capacity 152 ug/dl (265-497); Total Protein 5.4 g/dl (6.3-8.2); eGFR > 60.00
[2025-09-09 06:06] LABS: Ferritin 500.0 ng/ml (11.1-264.0)
[2025-09-09 06:38] LABS: Folate 8.4 ng/ml (2.76-20); Vitamin B12 821 pg/ml (239-931)
--- NOTE | 2025-09-09 06:43 | PTCARENOTE ---
a few episodes of being forgetful to place but able to be reoriented. peg site continues to leak
--- NOTE | 2025-09-09 07:30 | W.PN.HOSP.TC ---
Addendum entered and electronically signed by Darrin Kapoor, 09/09/25 14:03:
Update: Chest x-ray this morning showing moderate bilateral pleural effusions. IR consulted for diagnostic and therapeutic thoracentesis, likely to be done subsequently on separate days. Fluid studies ordered
Original Note:
Today's Communication/Plan
-
Escalate antibiotics to Vanco and Zosyn
1 dose IV Lasix 20 mg and start as needed midodrine
Continue with oral feeds and hold tube feeding
Wean oxygen as possible and monitor telemetry
Discuss transfer with [facility] for intervention for J-tube
Assessment / Plan
Assessment / Plan
#Acute hypoxemic and hypercapnic respiratory failure
#Sepsis secondary to aspiration pneumonia
#Possible iatrogenic CHF
- Presented on room air though throughout ED course had worsening and required 6 L O2
- Status post esophagectomy; recently had diet advanced in the outpatient setting, frequent coughing fits
- WBC 14.8 on arrival, lactate peaked at 3.5, procalcitonin elevated at 16.16 concerning for pneumonia
- ABG with pH 7.33, pCO2 50, pO2 78, bicarb 26.4; shallow breathing from pain likely limiting ventilation
- Blood cultures obtained, sputum culture ordered; started on IV ceftriaxone and azithromycin
- Has had uptrending O2 requirements, possibly from ongoing aspiration versus nonresponse to antibiotic
- Pulmonology following, recommendations appreciated
Plan
- Escalate antibiotics to IV vancomycin and Zosyn for broad-spectrum coverage
- Follow-up TTE that is ordered, consider dose of IV Lasix today, I/O's + Weights
- Wean oxygen for SpO2 goal >90%, aspiration precautions
- Consider PRN midodrine for soft blood pressure
- Follow cultures, trend CBC + Temp
- Cardiology consult
#Sinus tachycardia
- Likely is driven by pain, hypoxemia, possibly dehydration as well
- Will continue to address hypoxemia as above, pain as below; Cap maintenance IVF (09/09)
- Continue on telemetry, Avoid AVN blockade for now
- TTE pending
#Intractable chest and back discomfort
- Unclear cause, presenting complaint; acute onset following coughing fits; possibly muscle strain or other MSK cause
- ECG did have T wave inversions though troponin negative; chest pain atypical for cardiac etiology
- Started on multimodal pain regimen with Dilaudid and cyclobenzaprine
- Continue to monitor pain and uptitrate doses of Dilaudid and cyclobenzaprine as needed
#Anemia of chronic disease
- Hemoglobin on arrival 10.4-8.2-8.9 on repeat labs following IVF; no old labs to review
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
- Ferritin elevated at 500, low TIBC consistent with chronic inflammatory anemia
- Will continue to trend CBC and monitor for signs of bleeding
#Hypocalcemia with vitamin D deficiency
- Calcium on arrival was near 9, down to 6.3 following IV fluid resuscitation
- Suspect dilutional effect as albumin, total protein and elevated cell parameters downtrended
- Continue with calcium and vitamin D supplement
- Continue to trend BMP and ionized calcium
#Esophageal squamous cell carcinoma
#Status post esophagectomy
#J-tube dysfunction
- Follows with Dr. Heather Rodgers at [facility]; s/p chemo and XRT
- Had esophagectomy 3 weeks ago with anastomosis, diet has been modified on OP basis
- Abides by strict aspiration precautions as OP, 45 degree head of bed elevation
- Supplemental tube feeds on hold due to J-tube site leakage
- IR unable to adjust tube, will continue to hold and monitor oral intake
Diet: Puree'd with thickened liquids; Hold TFs
DVT: SQ Lovenox
Code: Full code
Dispo: PT consulted, may need to consider transfer to [facility] if unable to tolerate PO
Discussed with Pulm and cardiology
Anticipated Discharge: > 48 hours
Subjective/Interval History
-
Date of Service: September 09, 2025
Seen and examined at the bedside. No acute events reported overnight. O2 requirements up to 12 L, SpO2 low 90s, BP soft with SBP 95 mmHg, HR low 120s
Continues to have significant pain though improved with Flexeril and Dilaudid. Has developed some orthopnea
White count jumped to 20.8. Renal function stable. Morning ABG with pH 7.27/pCO2 56/bicarb 24
Objective Data
-
Labs:
Laboratory Results
09/09/25 09/09/25
04:41 04:51
WBC 20.8 H
Hgb 8.9 L
Hct 27.9 L
Plt Count 198
HCO3 26.5
Sodium 135
Potassium 4.9
Chloride 104
Carbon Dioxide 29
BUN 41 H
Creatinine 0.7
Glucose 86
Calcium 9.7 D
Total Bilirubin 0.5
AST 28
ALT 17
Alkaline Phosphatase 69
Vital Signs:
Vital Signs
Temp Pulse Resp BP Pulse Ox
97.7 F 124 0 93/52 98
09/09/25 03:35 09/09/25 06:00 09/09/25 06:00 09/09/25 06:00 09/09/25 06:00
I&O
09/08/25 09/09/25 09/10/25
06:59 06:59 06:59
Intake Total 1322 / 1322 1200 / 1200
Output Total 900 / 900 1250 / 1250
Balance 422 / 422 -50 / -50
Review of Systems
-
History Source: Patient
All other systems: Reviewed and negative
Physical Exam
-
General: Well Developed, Pain, Appears Chronically Ill and Other (Appears unwell, toxic)
HEENT: Normocephalic, Atraumatic, Moist Mucous Membranes, Anicteric and PERRLA
Respiratory: Rhonchi, Crackles, Non Labored Respirations and Accessory Resp Muscle Use
Cardiac: Regular Rhythm, S1/S2 and Tachycardic; Negative Murmur, Rub, JVD or Gallop
GI: Soft, Nontender, Nondistended, Normal Bowel Sounds and Other (J-tube/ostomy in place)
Musculoskeletal: No Clubbing, No Cyanosis and No Edema
Skin: Warm and Dry; Negative Rash
Neuro: Awake, Alert, Oriented, Sedated, Nonfocal/Grossly Intact and Central Nerve's Intact
Data Reviewed
-
Labs: Labs Reviewed by me and Discussed with Patient
[2025-09-09 08:06] LABS: Absolute Neutrophils -Man Diff 20.1 10^3/uL (1.4-6.5)
[2025-09-09 08:07] LABS: Anisocytosis 1+; Hypochromasia 1+; Normal RBC Morphology No; Platelets Checked Yes; Polychromasia 1+
[2025-09-09 08:08] LABS: Total Cells Counted 100
--- NOTE | 2025-09-09 08:30 | PHA.VAN.IN ---
Assessment
- Assessment
Renal Function: Appears similar to baseline
Concomitant Antimicrobials: zosyn
AUC Dosing Plan
- Dosing Variables
Dosing Weight (kg): 69.3
Dosing CrCl (ml/min): 76
Vd coefficient (L/kg): 0.7
- Empiric Dosing
Initial / Loading Dose: 750mg
Maintenance Regimen: 750mg q12h
Estimated AUC (mcg*h/mL): 474
Estimated Peak (mcg*h/mL): 27.9
Estimated Trough (mcg/ml): 13.3
Estimated Half Life (H): 10.3
- Monitoring
No levels ordered at this time: consider at steady state
MRSA Screen: Ordered per protocol
Pharmacokinetics Vancomycin I
- -
Patient Age: 64
Patient Sex: Female
Vancomycin Day #: 1
Indication: Pulmonary/Respiratory
Requesting Provider: Dr. Kapoor
Height / Weight:
Height 5 ft 6 in
Actual Weight 69.3 kg
IBW in k.3
- Vital Signs / Lab Results
Temp Pulse Resp BP Pulse Ox
97.7 F 124 0 93/52 98
09/09/25 03:35 09/09/25 06:00 09/09/25 06:00 09/09/25 06:00 09/09/25 06:00
Lab Results - Hematology
09/07/25 09/08/25 09/09/25
07:54 03:33 04:51
WBC 14.3 H 9.3 20.8 H
Band Neutrophils 18 H 35 H D
Lab Results - Chemistry
09/07/25 09/07/25 09/08/25
07:54 08:28 03:33
BUN Cancelled 16 29 H
Creatinine Cancelled 0.5 L 1.0
Estimated Creat Clear Cancelled 89 53
Albumin Cancelled 3.6 2.1 L D
09/09/25
04:51
BUN 41 H
Creatinine 0.7
Estimated Creat Clear 76
Albumin 2.6 L
09/07/25 09/07/25 09/08/25
16:17 23:54 03:33
Lactic Acid 2.8 H 3.8 H 2.5 H
Microbiology Results
09/07/25 18:24 Blood Culture - Preliminary
Blood/Venous No Growth in 24 hours- Final report to follow
09/07/25 18:22 Blood Culture - Preliminary
Blood/Venous No Growth in 24 hours- Final report to follow
09/07/25 12:26 Influenza Types A & B (AG) - Final
Nasal Swab Negative for Influenza A & B, NAAT
Negative results must be combined with clinical observations
and patient history.
Nucleic Acid Amplification test (NAAT)performed on the
[employer] platform.
09/07/25 12:26 Respiratory Syncytial Virus Ag - Final
Nasal Swab Negative for Respiratory Syncytial Virus.
A false negative result may be obtained with a specimen
collected early in the acute phase. If symptoms persist, a
new specimen should be tested.
[2025-09-09] MEDS: FLEXERIL 5 MG PO (08:46)
[2025-09-09] MEDS: OSCAL 500 + D 500 MG PO (08:47)
[2025-09-09] MEDS: TORADOL 15 MG IV ×2 (08:48→17:56)
[2025-09-09] MEDS: PROTONIX IV 40 MG IV (08:48)
[2025-09-09] MEDS: NSS (PRESERVATIVE FREE) 10 ML IV (08:48)
[2025-09-09] MEDS: PEPCID 20 MG IV (08:48)
[2025-09-09] MEDS: VANCOCIN 150 IV ×2 (08:49→17:53)
--- NOTE | 2025-09-09 09:39 | CM ---
Addendum entered by Lay Chiang 09/09/25 15:47:
Patient accepted at [facility] (Mandeep Herrera [id number]) . Thoracic surgeon, Dr. Omari Aponte, and oncologist accepted patient.
Patient will need ALS ambulance transport
CM was informed a prior auth is required to initiate transfer
CM placed call to [facility] ([phone] option 3), spoke w/ Kimi.
Pending ref # [id number]. NO AUTH REQUIRED FOR ALS AMBULANCE TRANSPORT
Per Colette/hotbed transfer operator- [phone], her team decided that patient is too medically unstable to transfer at this time. Per Colette, she informed nurse and hospitalist.
Requesting clinicals to be faxed to [phone] when patient is clear for discharge
Additional contact, Lin at [facility]- [phone] (to assist w/ auth if necessary)
Plan: Transfer to [facility] when medically stable
Original Note:
Patient seen bedside w/ spouse. Patient asleep. Initial assessment completed. 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 Heather Mckenzie) with J-tube in
place, hypertension, dyslipidemia, H/O melanoma x 2, S/P Appendectomy presenting to the hospital today with a complaint of diffuse back pain.
Patient resides w/ spouse in a 2STH, 2 steps to enter. Patient is independent w/ ambulation, ADLs and personal care. No DME. TF supplies supplied by [facility]. No inpatient rehab hx. Per spouse, a VN from [facility] comes once a week or less to
change dressing and take patient's vitals. Per spouse, patient received surgery at [facility], at this time determining if patient will need to transfer there to fix J-tube.
Address, point of contact and insurance verified
PCP: Bryan Fulton
Pharmacy: [facility]
Patient admitted under obs services. OOBS form verbally reviewed w/ spouse, copy provided, copy on chart
Plan: CM will cont to follow for d/c planning
[2025-09-09] MEDS: LASIX 20 MG IV (09:47)
[2025-09-09] MEDS: ZOSYN 100 IV ×3 (10:06→22:14)
[2025-09-09 12:19] LABS: LDH 166 U/L (120-246)
--- NOTE | 2025-09-09 12:22 | CON.CAR ---
Consultation
Consultation Request
Date/Time Consultation Requested: 09/09/2025 0859
Date/Time Consultation Performed: 09/09/2025 1100
Requesting Provider: Antwon
Performing Provider: Chantal
Reason for Consultation: HF, tachycardia
Medical History
-
Chief Complaint: back pain
History of Present Illness:
Patient a pleasant 64-year-old female with a past medical history significant for esophageal squamous cell carcinoma status post esophagectomy and J-tube placement at [facility], melanoma resection x 2, hypertension, hyperlipidemia who
presented due to back pain. Per family, H&P documentation, patient had significant coughing and J-tube dysfunction since placement in May. Patient was noted to be septic on admission with concern for pneumonia. CT scan demonstrated no evidence
of pulmonary emboli. During admission, patient was noted to have elevated heart rate with sinus tachycardia. Repeat chest x-ray demonstrated bilateral moderate pleural effusions. Cardiology consulted for sinus tachycardia and concern for heart
failure. BNP was checked and was noted to be 6000. Patient without history of heart failure and no prior cardiovascular evaluations. Patient undergoing treatment for infection and heart rate has improved however patient still with evidence of
overload on exam and requiring supplemental oxygen.
Past Medical History
Past Medical History: Other (See HPI)
Past Surgical History: Other (See HPI)
Social History
Tobacco: Non-Smoker
Alcohol: None
Drug: None
Personal:
Living: With Family
Family History
Family History: Reviewed & Not Pertinent
Allergies / Home Medications
Allergy/AdvReac Type Severity Reaction Status Date / Time
meperidine Allergy Rash Verified 09/07/25 15:27
morphine Allergy Rash Verified 09/07/25 15:27
oxycodone Allergy Rash Verified 04/26/25 12:40
�Medication �Instructions �Recorded �Confirmed �Type
famotidine 40 mg/5 mL (8 mg/mL) 20 mg feeding tube DAILY 09/07/25 09/07/25 History
oral suspension Gastrointestinal Issue
polyethylene glycol 3350 17 gram 17 g feeding tube DAILY 09/07/25 09/07/25 History
oral powder packet (Miralax) Constipation
tramadol 50 mg tablet 50 mg feeding tube QIDPRN PRN 09/07/25 09/07/25 History
moderate pain
Review of Systems
-
History Source: Patient and Family
Constitutional: No Symptoms
EENT: No Symptoms
Respiratory: Cough and Trouble Breathing
Cardiac: No Symptoms
Abdomen/GI: Abdominal Pain
Musculoskeletal: Edema
Skin: No Symptoms
Neurological: No Symptoms
Endocrine: No Symptoms
Hematologic/Lymphatic: No Symptoms
Physical Exam
Vital Signs
Temp Pulse Resp BP Pulse Ox
97.7 F 119 34 104/72 92
09/09/25 11:00 09/09/25 09:47 09/09/25 08:00 09/09/25 09:47 09/09/25 11:47
Lab Results
09/09/25 04:51
09/09/25 04:51
Troponin I 0.025 ng/ml 09/08/25 03:33
Mts-I-Liovafyvggd Pept 6020 pg/ml 09/09/25 04:51
Physical exam:
GENERAL: no acute distress, ill-appearing, somnolent but arousable
EYE: sclera anicteric
NECK: Supple, no JVD, no carotid bruit appreciated
ENT: normal nose, moist mucosal membranes
CARDIAC: Tachycardic rate and regular rhythm, +S1/S2, no murmur, rubs, or gallops
CHEST/PULMONARY: Decreased effort, decreased breath sounds by lateral bases with diffuse crackles/rhonchi
ABDOMEN: Soft, without focal tenderness or distention; J-tube/ostomy in place
NEUROLOGICAL: Alert and oriented x3
SKIN: Warm and dry, no rash
PSYCH: Normal and appropriate interaction.
Telemetry shows sinus rhythm/sinus tachycardia with PACs
Impression / Plan
-
Regional Cra: None prior to admission
Impression:
Acute hypoxic hypercapnic respiratory failure, multifactorial
� Likely related to pneumonia undergoing treatment
� Additionally, volume overload on exam in the setting of treatment for pneumonia with pleural effusions
� Elevated BNP greater than 6000, chest x-ray with bilateral effusions
� Still requiring supplemental O2, poor inspiratory effort likely related to pain also limits her ventilation
� EKG sinus tachycardia without significant ST-T abnormality
� No prior cardiac evaluation or testing
Acute heart failure, unknown EF
� Likely related to volume overload in the setting of treatment for infection and contributing to respiratory failure
� No prior cardiac evaluation or testing
� BNP greater than 6000; troponin negative
� Echocardiogram pending
Pneumonia, aspiration
� On antibiotic therapy; broadening spectrum/escalation per pulmonology and primary service
� PCT greater than 15
� Managed by pulmonology
� Possibly related to dysfunction of J-tube
Sinus tachycardia, improved
� Likely physiologic in the setting of pain, hypoxia, infection
� Not on AV annette blocking agents
� CT negative for PE/VTE
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
Anemia chronic disease
Recommendations:
� 2D echocardiogram assess cardiac size, shape, function, and valve anatomy in setting of respiratory failure and volume overload
� Agree with low-dose IV diuretic and monitor response; patient with bilateral effusions, if no improvement with low-dose diuretic, can consider thoracentesis which may also improve oxygenation and lung expansion
� Sinus tachycardia likely physiologic in the setting of significant illness, would not recommend beta-siddharth therapy/AV annette blocking therapy at this time and will continue to treat underlying causes
� Monitor on telemetry
� Will follow
Discussed with primary service, family at bedside
Data Reviewed
-
EKG: Tracing Personally Visualized and interpreted
Radiology: Report Reviewed by me
CT Scan: Report Reviewed by me
Labs: Labs Reviewed by me
Old Records: Reviewed
--- NOTE | 2025-09-09 12:32 | PTCARENOTE ---
Rec'd pt this AM. C/O a lot of pain, moaning, yelling out, climbing out of bed, restless. PRN meds given with relief. Family at bedside Family requiring extensive education on pt's condition and what pt is able to do safely. Able to wean pt from 12
to 10L midflow NC. family ordered pureed food for pt. BP soft, PRN midodrine ordered but unable to give at this time due to sleepiness. aware.
[2025-09-09] MEDS: CORDARONE 259 MG IV ×2 (13:47→20:31)
--- NOTE | 2025-09-09 13:56 | W.PN.UPDATE ---
Addendum entered and electronically signed by Darrin Kapoor DO 09/09/25 16:07:
Patient developing hypotension with SBP near 80, MAP currently 68 mmHg, heart rate still in the 170s. Remains on IV amiodarone. Will trial 500 mL bolus. Discussed with mower sharpener, may require upgrade to ICU for vasopressors if not responding.
Spoke with team at [facility], transfer currently on hold until patient stabilized. They did state that she should be resumed on her tube feeds and that her baseline leakage is expected. Reordered tube feeds per home regimen.
Recheck ABG, lactate, CMP, CBC with differential
Will continue to follow
Original Note:
Update Note
Progress Note Update
I spoke with [facility] transfer center and Dr. Alfonso (thoracic surgery fellow) and Dr. Liu (oncology) and they have agreed to accept the patient for transfer to [facility]. Her medical record including all notes and CD of imaging
studies will need to be sent with her to [facility].
I went to the room to update the family and patient was noted to be in SVT with heart rate as high as 180/min without new complaints, blood pressure remains soft though not hypotensive, respiratory status stable. ECG showing atrial fibrillation
with RVR which is new diagnosis for her. [id number] score calculated at 1 with her female gender, relatively low risk for cardioembolic complications. Discussed with cardiology and mower sharpener. Will hold off on IV diltiazem drip due to soft
blood pressures and risk for developing circulatory shock. Will start IV amiodarone drip for stable SVT. Avoid anticoagulation for now as this may be transient, and she has a low [id number] as well. Continue to monitor on telemetry for now.
During this episode she was also found to have urine retention with 800 mL on bladder scan. Ordered Johansen catheter. Suspect that this may also help to improve her SVT. Plan for trial of void when clinical status is improved and she is able to
attempt ambulation
42 minutes of critical care time utilized
--- NOTE | 2025-09-09 14:02 | PTCARENOTE ---
Pt requested to use bedpan. Immediately upon assiting pt onto bedpan, HR up to 180s. Stat EKG completed showing A fib with RVR, Dr. Kapoor at bedside, Dr. Niño arrived as well. bladder scan showed approx 775ml in bladder. updated MD, order
obtained, jaquez catheter placed, amio drip started. VAT team notifed for additional access. Family at bedside, updated by RN and medical team
--- NOTE | 2025-09-09 15:33 | W.PN.PUL3 ---
Today's Communication / Plan
-
Abx to cover pneumonia (broadened to cover Pseudomonas + MRSA)
Follow-up blood cultures; collect sputum culture if she can produce a decent sample
Heart rate control with amiodarone infusion; cardiology consulted; maintain MAP >65
Continue Pepcid + PPI
Defer ostomy bag which is collecting bilious fluid from her J-tube to the hospitalist team; once patient stabilized she will be transferred to [facility]
Low threshold to upgrade level of care to ICU considering her rapid A-fib with hypotension
Pulmonary service will continue to follow along
Assessment
-
64-year-old female with history of recently diagnosed esophageal squamous cell carcinoma s/p esophagectomy/J tube at [facility] (follows with Dr. Heather Mckenzie), melanoma resection x 2, presenting to ER with a complaint of diffuse back
pain.� States that she has had intermittent coughing issues since her esophagectomy with a significant episode of coughing prior to arrival.� She had been exclusively using J-tube since May but in the past week her diet was advanced. There had
been some coughing observed with sip trials by the RN. In the ED, was noted to be tachycardic and hypoxemic requiring 6 L O2 though otherwise afebrile and stable.� Initial labs with WBC 14.3, hemoglobin 10.4, sodium 130, chloride 96.� ECG with
sinus tachycardia, right sided intraventricular conduction delay and T wave inversions in the anterolateral leads.� CT PE protocol without signs of pulmonary emboli, showed signs of subsegmental atelectasis and small bilateral effusions unchanged
from previous studies, mild anterior pericardial thickening. Was ordered IV fluids and given 5 mg diazepam and 1 mg IV Dilaudid in the ED. Admitted to for presumed PNA.
Acute hypoxic respiratory failure, O2 alta 84%
Acute on chronic cough
New onset rapid A-fib
Back and chest discomfort s/p cough
BL Effusions w/ compressive atelectasis
Elevated proBNP, Leukocytosis, r/o PNA--suspect aspiration
Anemia, likely chronic
Hyponatremia
Hyperglycemia
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
Chronic dysphagia status post EGD 04/26/2025-large fungating/ulcerating mass found in the middle third of the esophagus
Path positive for invasive squamous carcinoma, status post esophagectomy 3 weeks ago
Follows at [facility], status post J-tube
dvt left arm (2000)
visceral tear right eye
melanoma s/p removal 2007,2012
hypertension
hyperlipidemia
Appendectomy
benign breast bx 1976
Plan
Hypoxemia noted on arrival, O2 alta 84%, she has been on 8 L/min up until 09/09, but has needed 12 L/min overnight and is now on 12 L/min after going into rapid A-fib
She had already been TRX to IMU for closer monitoring on 09/08
No oxygen was needed at baseline, she denies history of lung disease in the past
Given her lethargy, blood gas obtained showing mild acute respiratory acidosis - -> continue to trend; avoid BiPAP if possible given aspiration risk
Home O2 evaluation prior to discharge
Patient went into rapid A-fib today (09/09) while moving onto the bedpan with help by nursing staff
- Cardizem drip was going to be started however due to hypotension, amiodarone infusion started instead
- Cardiology consulted and recs appreciated
- Echo is pending
- Goal HR <110
- Trial of IVF as she may be dry from J-tube leakage and inadequate oral intake
- Defer starting heparin drip to cardiology
Suspect patient has aspiration PNA, diet advanced 1 week prior to admission
CXR/CT obtained indicating bibasilar consolidation w/ compressive atelectasis
Other imaging reviewed from April, but she had recent imaging last week at [facility] per family that was reportedly normal
Diet as per BALL FRINGE MACHINE OPERATOR - on 09/08 they recommended cautious diet initiation with pur�ed solids and mildly thick liquids, with J-tube to be used for nutrition
Aspiration precautions
Agree with IV abx (Zithromax, vanc and Zosyn s/p rocephin)
Airway clearance measures (unfortunately she did not tolerate the vest); continue prn nebs
Recent esophagectomy 3 weeks prior
I suspect that her bibasilar consolidations and effusions are related to her recent surgery, although per documentation the patient had recent imaging last week prior to arrival at [facility] which was reportedly normal
Has J-tube in place - tube is leaking as balloon is not inflated; IR consulted but they were unable to help; may need to be handled at [facility] either s/p discharge or as a transfer to their facility
Completed at [place], family has close visits weekly at their offices
The family has concerns about J-tube management and leakage - -> defer to primary team
Effusions noted, r/o CHF
ProBNP negative on admission
ECHO pending
Denies any prior known history of lung disease, lifelong non-smoker
H/o DVT in past, CTA neg for PE
DVT ppx: LMWH
Reviewed case with care team and low threshold for transfer to [facility] vs other tertiary care center
Given her rapid A-fib with hypotension, low threshold to transfer to ICU. In the interim, continue with close monitoring.
We will follow
Critical care statement: A total of 40 minutes of critical care time was provided for this patient today. This includes management of unstable vital signs, evaluation of the patient at bedside, reviewing the patient�s pertinent medical records
including radiographs, microbiology, laboratory evaluations, and��discussion with primary team, consultants, pharmacy, nutrition, physical therapy, case management, charge nurse, critical care nursing, and respiratory therapy.
Diagnostic Data
Chest X-Ray:
CT Scan: CHEST 09/07/25- No findings to suggest central pulmonary embolism. Recent prior esophagectomy with gastric pull-up with accompanying large consolidations in the lower lobes bilaterally most likely representing subsegmental atelectasis and
small bilateral pleural effusions. Mild anterior pericardial thickening, cannot exclude tiny pericardial effusion.
05/02/25- Severe circumferential diffuse esophageal wall thickening. This can be seen with esophagitis or a mural mass. Correlation recent biopsy results. Probable small adjacent hematoma along the right lateral wall of the distal esophagus. No
evidence of esophageal leak. Correlation with outside PET/CT report recommended
Echo: pending
PFT's:
Reports and relevant images were personally reviewed.
Subjective Data
-
Date of Service:
Date of Service: September 09, 2025
Chief Complaint: Pulmonary Follow Up
Subjective:
Patient seen and evaluated today at bedside. She is now in rapid A-fib after being helped to the bedpan. Also needed up to 12 L/min nasal cannula overnight after nursing staff helped the patient with a bath. Patient also had urinary retention
this afternoon and Johansen catheter inserted. She continues to have leakage from her J-tube although it seems to be slowing down, per nursing. Patient is awake but drowsy, answer my questions. Patient has been afebrile. She has a wet sounding
cough. Current BP 98/81 with heart rate as high as 188 and she is currently saturating 90% on 12 L/min nasal cannula.
Review of Systems
General: Other (Unobtainable - due to acuity of clinical status)
Objective Data
Data Reviewed
Vital Signs / I&O / Oxygen:
Vital Signs
Temp Pulse Resp BP Pulse Ox
97.7 F 119 34 104/72 89
09/09/25 03:35 09/09/25 09:47 09/09/25 08:00 09/09/25 09:47 09/09/25 08:00
Intake and Output
09/08/25 09/09/25 09/10/25
06:59 06:59 06:59
Intake Total 1322 / 1322 1200 / 1200
Output Total 900 / 900 1250 / 1250
Balance 422 / 422 -50 / -50
SaO2 89
Nasal Cannula flow liters per 8
minute
Physical Exam
General: Respiratory Distress (mild), Comfortable and Chills (negative)
HEENT: Normocephalic and Anicteric
Cardiovascular: Irregular Rhythm, Peripheral Edema (negative) and Other (Tachycardic)
Respiratory: Wheeze (negative), Crackles (bilateral), Rhonchi (bilateral), Accessory Resp Muscle Use (mild), Stridor (negative) and Other (Diminished breath sounds bilaterally with poor inspiratory effort)
GI: Soft, Non Tender, Normal Bowel Sounds and Feeding Tube (jejunostomy tube with ostomy bag covering stoma and collecting bilious fluid)
Neurology: Awake (Drowsy) and Tremors (negative)
Skin: Warm, Dry, Cyanosis (negative), Jaundice (negative) and Rash
Labs/Micro/Reports
Lab Data
09/09/25 04:51
09/09/25 04:51
Laboratory Results
09/09/25
04:41
pH 7.26 L
pCO2 59 H
pO2 77 L
HCO3 26.5
O2 Delivery Level
Microbiology
09/07/25 18:24 Blood/Venous Blood Culture - Preliminary
No Growth in 24 hours- Final report to follow
09/07/25 18:22 Blood/Venous Blood Culture - Preliminary
No Growth in 24 hours- Final report to follow
09/07/25 12:26 Nasal Swab Influenza Types A & B (AG) - Final
Negative for Influenza A & B, NAAT
Negative results must be combined with clinical observations
and patient history.
Nucleic Acid Amplification test (NAAT)performed on the
[employer] platform.
09/07/25 12:26 Nasal Swab Respiratory Syncytial Virus Ag - Final
Negative for Respiratory Syncytial Virus.
A false negative result may be obtained with a specimen
collected early in the acute phase. If symptoms persist, a
new specimen should be tested.
[2025-09-09] MEDS: FLEXERIL PO ×2 (16:07→22:14)
[2025-09-09] MEDS: OSCAL 500 + D PO ×2 (16:07→22:14)
[2025-09-09] MEDS: LR 500 IV (16:21)
[2025-09-09 16:52] LABS: Venous Blood Gas B.E. 1.3 mmol/L (-4 to +4); Venous Blood Gas O2 Sat % 98.9 %
[2025-09-09 17:10] LABS: ALT (SGPT) 16 U/L (0-35); AST (SGOT) 24 U/L (14-36); Albumin 2.4 g/dl (3.5-5.0); Alkaline Phosphatase 68 U/L (38-126); Blood Urea Nitrogen 44 mg/dl (7-17); Calcium 9.5 mg/dl (8.4-10.2); Carbon Dioxide 27 mmol/L (22-30); Chloride 105 mmol/L (98-107); Estimated Creatinine Clearance 76 ml/min; Glucose 109 mg/dl (70-99); Potassium 4.7 mmol/L (3.5-5.1); Sodium 134 mmol/L (135-145); Total Protein 5.1 g/dl (6.3-8.2); eGFR > 60.00
--- NOTE | 2025-09-09 17:15 | PTOTSP ---
ST Follow-Up
Pt currently presenting with clinical signs of suspected severe oropharyngeal dysphagia in the setting of known hx of severe esophageal dysphagia. Given pt's acute medical decline, pt is not appropriate for PO intake or ARHP at this time as the
risks currently outweigh the benefits.
Recommendations:
- STRICT NPO; NO ICE CHIPS.
- All nutrition, hydration, and medications via J-tube; if not functioning adequately, consider TPN?
- Strict aspiration and reflux precautions: HOB upright as often as possible; oral care q4 hours with suctioning as needed; turn off TF when lying pt laterally for care.
- AIRCRAFT INSPECTOR to f/u re: re-assessing pt's candidacy for PO diet initiation and assessing pt's appropriateness for instrumental swallow study.
- Pt will need AIRCRAFT INSPECTOR services upon transfer to [facility].
[2025-09-09 17:17] LABS: Hematocrit 26.2 % (37.0-47.0); Hemoglobin 8.4 g/dL (12.0-16.0); Mean Corp Hgb Conc. 32.1 g/dL (33.0-37.0); Mean Corpuscular Volume 94.6 fL (81.0-99.0); Platelet Count 156 10^3/uL (130-400); Red Cell Dist. Width 16.0 % (11.5-14.5)
[2025-09-09] MEDS: LOVENOX 40 MG SC (17:54)
[2025-09-09 18:10] LABS: Absolute Neutrophils -Man Diff 20.3 10^3/uL (1.4-6.5)
[2025-09-09 18:13] LABS: Hypochromasia 1+; Normal RBC Morphology No; Platelets Checked Yes; Total Cells Counted 100
--- NOTE | 2025-09-09 18:15 | PTCARENOTE ---
Pt remains in A fib with RVR, BP 81/64. Toredol given for pain, also respositioned for comfort as well, support provided to patient and family. TF being initiated
[2025-09-09] MEDS: LEVOPHED 250 IV (19:10)
--- NOTE | 2025-09-09 21:43 | PTCARENOTE ---
received pt at beginning of shift afib 170's amio gtt infusing sbp 70's started levo- see worklist- 12 liters midflow- . bp now meets map greater than 65 on levo- afib now 140's, jaquez draining lorena, pt lethargic - lungs diminished with crackles at
bases rr in the low 20's. ax3 with periods of forgetfulness and confusion but able to be reoriented. afebrile
--- NOTE | 2025-09-09 22:11 | PTCARENOTE ---
possible left limb restriction clarified- pt had a dvt to left arm 21 years ago- no contraindication to left arm iv or bp
[2025-09-10] VITALS (73 sets, daily range): BP systolic 75–158; BP diastolic 45–122
[2025-09-10] MEDS: ZITHROMAX 252.5 MG IV (01:14)
[2025-09-10] MEDS: TORADOL 15 MG IV ×2 (01:46→08:54)
[2025-09-10] MEDS: DILAUDID 1.5 MG IV (01:50)
[2025-09-10] MEDS: LEVOPHED 250 IV (02:07)
[2025-09-10] MEDS: ZOSYN 100 IV ×4 (03:00→22:27)
--- NOTE | 2025-09-10 03:01 | PTCARENOTE ---
hr in the 130's levo remains at 8 mcg /min. pt cried out in pain with agitation prns's given see dec. 8 liters
--- NOTE | 2025-09-10 04:49 | PTCARENOTE ---
he 120's afib on amio- Levophed weaned to 6 mcg/minute. afebrile- pt lethargic. midflow weaned to 10 ml- jaquez with about 300 lorena this shift
[2025-09-10] MEDS: VANCOCIN 150 IV (05:07)
[2025-09-10 06:02] LABS: Hematocrit 27.4 % (37.0-47.0); Hemoglobin 8.5 g/dL (12.0-16.0); Mean Corp Hgb Conc. 31.0 g/dL (33.0-37.0); Mean Corpuscular Volume 98.2 fL (81.0-99.0); Platelet Count 166 10^3/uL (130-400); Red Cell Dist. Width 16.3 % (11.5-14.5)
[2025-09-10 06:09] LABS: ALT (SGPT) 23 U/L (0-35); AST (SGOT) 33 U/L (14-36); Albumin 2.4 g/dl (3.5-5.0); Alkaline Phosphatase 107 U/L (38-126); Blood Urea Nitrogen 47 mg/dl (7-17); Calcium 9.1 mg/dl (8.4-10.2); Carbon Dioxide 28 mmol/L (22-30); Chloride 105 mmol/L (98-107); Estimated Creatinine Clearance 59 ml/min; Glucose 189 mg/dl (70-99); LDH 253 U/L (120-246); Magnesium 2.3 mg/dl (1.6-2.3); Potassium 4.5 mmol/L (3.5-5.1); Sodium 136 mmol/L (135-145); Total Protein 5.0 g/dl (6.3-8.2); eGFR > 60.00
--- NOTE | 2025-09-10 06:36 | PTCARENOTE ---
levo weaned to 4 mcg/min. midflow down to 6 liters. afib 130's- pt varied from lethargic to waking up in pain
[2025-09-10 07:05] LABS: Nucleated Red Blood Cells % 0 %
[2025-09-10] MEDS: FLEXERIL PO ×3 (07:29→21:10)
[2025-09-10] MEDS: OSCAL 500 + D PO ×3 (07:30→21:11)
[2025-09-10] MEDS: VALIUM INJECTION 2 MG IV ×3 (08:06→23:26)
[2025-09-10] MEDS: PROTONIX IV 40 MG IV (08:32)
[2025-09-10] MEDS: NSS (PRESERVATIVE FREE) 10 ML IV (08:33)
[2025-09-10] MEDS: PEPCID 20 MG IV (08:33)
[2025-09-10] MEDS: DULCOLAX 10 MG RECTAL (08:54)
--- NOTE | 2025-09-10 09:16 | W.PN.HOSP.TC ---
Today's Communication/Plan
-
PICC line
Stop levo, start willie -- ICU transfer
ID consult
Continue with IV antibiotic, observe cultures
IR consult for thoracentesis, fluid to be sent for analysis
Continue with amio drip, cardiology appreciated
Patient remains n.p.o., continue with aspiration precautions
Assessment / Plan
Assessment / Plan
Ragini is a 64 year old female with a past medical history of invasive SCC of the esophagus, s/p chemo/radiation (finished July 13 2025) and 3 weeks s/p esophagectomy at [facility], J-tube placement in May 2025, h/o Afib during chemotherapy
(previously on Amiodarone), post-op BL pleural effusions who presented to the PMDED with concerns for acute chest/back pain that started last night, associated with gagging.
#Septic shock, possibly secondary to aspiration pneumonia
Leukocytosis, lactate 3.5/procal 16.16 on admission w/ CT findings of BL pleural effusions. Initially treated for presumed aspiration PNA and sepsis (recently diet advanced after esophagectomy w/ fits of coughing/gagging). Started on IV
Ceftriaxone/Doxy, then developed hypotension requiring pressors, AMS, increasing leukocytosis
- was initially on levophed, size 8 mcg, then down to 4mcg -- now switched to willie gtt
- ICU transfer
- received 500cc bolus x1; question of CHF, avoiding aggressive hydration for now
- Continue with IV antibiotics Vanco/Zosyn
- Blood Cx (09/07) -- NG x48h; MRSA neg
- ID consulted
#Acute hypoxemic and hypercapnic respiratory failure
#Worsening BL Pleural effusions
Presented on room air intially, but eventually required 6 L O2 in the ED
- ABG with pH 7.33, pCO2 50, pO2 78, bicarb 26.4; shallow breathing from pain likely limiting ventilation
- Tx for presumed aspiration PNA/sepsis/septic shock as above
- infectious workup pending, neg thus far
- Continues to have up-trending O2 requirements up to 12 L, possibly from ongoing aspiration versus nonresponse to antibiotic
- Wean oxygen for SpO2 goal >90%, aspiration precautions
- Speech following; currently NPO for aspiration concerns
- Pulmonology following -- transfer to ICU
- IR consult for bedside thoracentesis for bilateral pleural effusions to be sent for fluid analysis
#?CHF
proBNP on admission 470, several days later now 6000s.
- worsening BL pleural effusions on CXR
- hypotension in the setting of afib with RVR
- Given 1 dose 20 mg IV Lasix, currently holding due hypotension requiring pressors
- Trend I's and O's, daily weight
- pending TTE
#Paroxysmal Afib
Likely is driven by pain, hypoxemia, possibly dehydration vs. chronic illness/cancer
- Initially Sinus tachy -- now progressed to Afib w/ rates as high as 200s, now hovering 120-140s
- [id number] score of 1
- Cardizem held for hypotension requiring pressors
- Cardiology following; holding anticoagulation for now
- Continue with amnio gtt.
- Continue on telemetry, Avoid AVN blockade for now
#Intractable chest and back discomfort
Unclear cause, presenting complaint; acute onset following coughing fits; possibly muscle strain vs. other MSK cause
- ECG did have T wave inversions though troponin negative; chest pain atypical for cardiac etiology
- Started on multimodal pain regimen with Dilaudid and cyclobenzaprine
- Continue to monitor pain and up-titrate doses of Dilaudid and cyclobenzaprine as needed
- Continue with adjunctive Toradol for moderate pain, heating pad
#Anemia of chronic disease
Ferritin elevated at 500, low TIBC. Likely secondary to esophageal SCC
- Hemoglobin on arrival 10.4-8.2-8.9 on repeat labs following IVF; no old labs to review
- Suspect that her baseline is likely closer to current range
- Will continue to trend CBC and monitor for signs of bleeding
- Transfuse as needed for hemoglobin less than 7
#Hypocalcemia with vitamin D deficiency
- Calcium on arrival was near 9, down to 6.3 following IV fluid resuscitation
- Suspect dilutional effect as albumin, total protein and elevated cell parameters downtrended
- Continue with calcium and vitamin D supplement
- Continue to trend BMP and ionized calcium
#Esophageal squamous cell carcinoma
#Status post esophagectomy
#J-tube dysfunction
- Follows with Dr. Heather Rodgers at [facility]; s/p chemo and XRT
- Had esophagectomy 3 weeks ago with anastomosis, diet has been modified on OP basis
- Abides by strict aspiration precautions as OP, 45 degree head of bed elevation
- Supplemental tube feeds on hold due to J-tube site leakage
- Family now amenable to J-tube management at [facility]; spoke with IR, family initially hesitant because patient states any tube larger than 12fr tube results and pain. Patient also initially did not want balloon inflation due to pain as well.
Hospital only carries 18fr.
DVT: SQ Lovenox
Code: Full code
Anticipated Discharge: > 48 hours
Subjective/Interval History
-
Date of Service: September 10, 2025
Pt is agitated and delirious, trying to get out of bed. She is intermittently arousable and generally able to follow commands. She shakes her head no when asked about pain or other symptoms, but does not elaborate. Overnight she has been tachycardic
and remains in afib rhythm. She has not had a bowel movement. Her pressor requirements are coming down to 4mcg levophed. She is down to 6L NC. Her amio ggt has decreased to 0.5mg and her HRs remain in the 120-140s.
Objective Data
-
Labs:
Laboratory Results
09/10/25
04:58
WBC 38.1 H
Hgb 8.5 L
Hct 27.4 L
Plt Count 166
Sodium 136
Potassium 4.5
Chloride 105
Carbon Dioxide 28
BUN 47 H
Creatinine 0.9
Glucose 189 H
Calcium 9.1
Total Bilirubin 0.4
AST 33
ALT 23
Alkaline Phosphatase 107
Vital Signs:
Vital Signs
Temp Pulse Resp BP Pulse Ox
97.3 F 130 16 103/89 96
09/10/25 04:21 09/10/25 06:30 09/10/25 06:30 09/10/25 06:30 09/10/25 06:30
I&O
09/09/25 09/10/25 09/11/25
06:59 06:59 06:59
Intake Total 1200 / 1200 1160 / 1160
Output Total 1250 / 1250 1250 / 1250 50 / 50
Balance -50 / -50 -90 / -90 -50 / -50
Review of Systems
-
Unable to obtain full review of systems at this time due to: Acuity
History Source: Patient
All other systems: Reviewed and negative
Constitutional: Reports No Symptoms
EENT: Reports No Symptoms Reported
Respiratory: Reports No Symptoms
Cardiac: Reports No Symptoms
Abdomen/GI: Reports No Symptoms
Genitourinary: Reports No Symptoms
Musculoskeletal: Reports No Symptoms
Skin: Reports No Symptoms
Neuro: Reports No Symptoms
Hematologic / Lymphatic: Reports No Symptoms
Allergy / Immunology: Reports No Symptoms
Physical Exam
-
General: Well Developed, Well Nourished, Appears in Distress and Appears Chronically Ill
HEENT: Normocephalic, Atraumatic, Anicteric, [place] Conjunctivae, Nose Appears Normal, Ears Appear Normal and Oxygen (6L NC); Negative Moist Mucous Membranes (dry mucous membranes)
Respiratory: Crackles; Negative Clear to Auscultation or Wheezes
Cardiac: S1/S2, Irregular Rhythm and Tachycardic; Negative Murmur
GI: Nondistended, Tender and Other (J tube with ostomy bag, containing tube feed/stomach contents)
Genito-urinary: Johansen
Musculoskeletal: No Clubbing, No Cyanosis and No Edema
Skin: Warm and Dry
Neuro: Awake, Alert and Oriented (oriented only to person, not to place/time/purpose)
Psych: Confused and Agitated
--- NOTE | 2025-09-10 09:56 | W.PN.CARDCBS ---
Today's Communication / Plan
-
Remains in rapid A-fib with improved heart rates on IV amiodarone
Continues to require Levophed for hypotension
Overall prognosis poor
Impression / Plan
-
Cuff Setter Overlock: None prior to admission
Impression:
Acute hypoxic hypercapnic respiratory failure, multifactorial
Acute heart failure, unknown EF
Hypotension requiring pressors
Atrial fibrillation with rapid ventricular response
Pneumonia, aspiration
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
Anemia chronic disease
Recommendations:
She remains extremely ill on pressors with rapid A-fib but improved heart rate on IV amiodarone
She was given IV Lasix on 09/09 but Lasix has been held due to hypotension requiring pressors
Will check echocardiogram to assess LV function
She is for thoracentesis later today
Will need to decide regarding anticoagulation at some point given persistent A-fib
Continue broad-spectrum antibiotics and pressors
[place] declined transfer
Updated family in detail at bedside and discussed with nursing
Discussed with primary service and pulmonary
Critical care time 32 minutes so far
Progress Note - Cuff Setter Overlock
Subjective
Date of Service: September 10, 2025
No complaints
Objective
Labs:
09/10/25 04:58
09/10/25 04:58
Labs
Hgb 8.5 g/dL (12.0-16.0) L 09/10/25 04:58
Hct 27.4 % (37.0-47.0) L 09/10/25 04:58
Plt Count 166 10^3/uL (130-400) 09/10/25 04:58
Sodium 136 mmol/L (135-145) 09/10/25 04:58
Potassium 4.5 mmol/L (3.5-5.1) 09/10/25 04:58
BUN 47 mg/dl (7-17) H 09/10/25 04:58
Creatinine 0.9 mg/dL (0.6-1.0) 09/10/25 04:58
Glucose 189 mg/dl (70-99) H 09/10/25 04:58
Troponins
09/07/25 09/07/25 09/07/25
12:26 16:17 23:54
Troponin I 0.017 0.019 0.023
09/08/25
03:33
Troponin I 0.025
Vital Signs and I&O:
Vital Signs
Temp Pulse Resp BP Pulse Ox
97.3 F 130 16 103/89 96
09/10/25 04:21 09/10/25 06:30 09/10/25 06:30 09/10/25 06:30 09/10/25 06:30
Vital Signs
Temp Pulse Resp BP Pulse Ox
97.3 F 130 16 103/89 96
09/10/25 04:21 09/10/25 06:30 09/10/25 06:30 09/10/25 06:30 09/10/25 06:30
Intake & Output
09/08/25 09/09/25 09/10/25 09/11/25
06:59 06:59 06:59 06:59
Intake Total 1322 / 1322 1200 / 1200 1160 / 1160
Output Total 900 / 900 1250 / 1250 1250 / 1250 50 / 50
Balance 422 / 422 -50 / -50 -90 / -90 -50 / -50
Physical Exam
Physical Exam
General: Well developed, well nourished in NAD.
Neck: Supple, no JVD, HJR, carotids +2 B/L, no bruits bilaterally.
Heart: Non displaced PMI, irregular, no murmurs, No S3, S4, no rubs.
Lungs: Scattered rhonchi
Extremities: No clubbing, cyanosis or edema bilaterally.
Neuro: Grossly nonfocal, awake, alert and oriented x3.
[2025-09-10] MEDS: CORDARONE 259 MG IV (10:58)
--- NOTE | 2025-09-10 11:30 | W.PN.PUL3 ---
Today's Communication / Plan
-
Transfer to ICU
Transition to Red-Synephrine
Possible thoracentesis today
Continue antibiotics
Heart rate control per cardiology
Continue oxygen supplementation
Hold noninvasive mechanical ventilation due to recent esophagectomy and aspiration risk
High risk situation
Assessment
-
64-year-old female with history of recently diagnosed esophageal squamous cell carcinoma s/p esophagectomy/J tube at [facility] (follows with Dr. Heather Mckenzie), melanoma resection x 2, presenting to ER with a complaint of diffuse back
pain.� States that she has had intermittent coughing issues since her esophagectomy with a significant episode of coughing prior to arrival.� She had been exclusively using J-tube since May but in the past week her diet was advanced. There had
been some coughing observed with sip trials by the RN. In the ED, was noted to be tachycardic and hypoxemic requiring 6 L O2 though otherwise afebrile and stable.� Initial labs with WBC 14.3, hemoglobin 10.4, sodium 130, chloride 96.� ECG with
sinus tachycardia, right sided intraventricular conduction delay and T wave inversions in the anterolateral leads.� CT PE protocol without signs of pulmonary emboli, showed signs of subsegmental atelectasis and small bilateral effusions unchanged
from previous studies, mild anterior pericardial thickening. Was ordered IV fluids and given 5 mg diazepam and 1 mg IV Dilaudid in the ED. Admitted to for presumed PNA.
Acute hypoxic respiratory failure, O2 alta 84%-currently on 8 L mid flow.
Shock: Septic/cardiogenic
New onset rapid A-fib
Back and chest discomfort s/p cough
BL Effusions w/ compressive atelectasis
Elevated proBNP, Leukocytosis, suspected PNA--suspect aspiration
-
Anemia, likely chronic
Hyponatremia
Hyperglycemia
Conditions present TERMITE TREATER
Chronic dysphagia status post EGD 04/26/2025-large fungating/ulcerating mass found in the middle third of the esophagus
Path positive for invasive squamous carcinoma, status post esophagectomy 3 weeks ago
Follows at [facility] [place], status post J-tube
dvt left arm (2000)
visceral tear right eye
melanoma s/p removal 2007,2012
hypertension
hyperlipidemia
Appendectomy
benign breast bx 1976
Plan:
Patient is critically ill: On rapid atrial fibrillation, requiring vasopressors, increased work of breathing with generalized weakness.
-
Acute hypoxemic respiratory failure: From 12 L down to 8 to 10 L nasal cannula.(No previous history of pulmonary disease.)
Increased work of breathing on exam.
Weak cough effort.
Alert and cooperative. Feels very tired.
-
She had already been TRX to IMU for closer monitoring on 09/08
Given above and persistent vasopressor requirement with rapid atrial fibrillation recommend transfer to critical care unit. Respiratory status is tenuous and is a high risk situation.
-
Acute hypoxemic/hypercapnic respiratory failure.
Alert and cooperative.
Continue oxygen supplementation to maintain pulse ox above 90%-slightly improved.
Avoid BiPAP if possible given aspiration risk and recent esophagectomy.
-
Shock: Septic/possibly cardiogenic.
Renal function is normal
Continue to follow urinary output
Status post IV fluid resuscitation
If remains hypotensive despite heart rate control may consider intermittent albumin-less likely to be effective at this point and patient already has bilateral pleural effusions and third spacing.
DC Levophed
Start Red-Synephrine due to ongoing tachycardia
-
Rapid A-fib today (09/09) while moving onto the bed miller with help by nursing staff
Persistently tachycardic/hypotensive in shock-Cardizem on hold.
Amiodarone continues
Cardiology following
Echocardiogram pending
- Goal HR <110
- Status post IVF as she may be dry from J-tube leakage and inadequate oral intake
- Defer starting heparin drip to cardiology
Suspect patient has aspiration PNA, diet advanced 1 week prior to admission
CXR/CT obtained indicating bibasilar consolidation w/ compressive atelectasis
Other imaging reviewed from April, but she had recent imaging last week at [facility] per family that was reportedly normal
Diet as per ADMINISTRATIVE ASSISTANT - on 09/08 they recommended cautious diet initiation with pur�ed solids and mildly thick liquids, with J-tube to be used for nutrition
Aspiration precautions
Currently on broad-spectrum antibiotics: Vancomycin/Zosyn/azithromycin
Hopefully can narrow down in the next 24 to 48 hours depending on cultures.
-
Airway clearance measures (unfortunately she did not tolerate the vest); continue prn nebs
Recent esophagectomy 3 weeks prior
I suspect that her bibasilar consolidations and effusions are related to her recent surgery, although per documentation the patient had recent imaging last week prior to arrival at [facility] which was reportedly normal
Has J-tube in place - tube is leaking as balloon is not inflated; IR consulted but they were unable to help; may need to be handled at [facility] either s/p discharge or as a transfer to their facility
Completed at [facility], family has close visits weekly at their offices
The family has concerns about J-tube management and leakage - -> defer to primary team
[facility] declined transferred.
Bilateral pleural effusions: Likely due to hypoalbuminemia/third spacing.
IR evaluating for possible thoracentesis right or left.
On CAT scans he appears small. Appear bigger on chest x-ray due to low lung volumes.
ProBNP negative on admission
ECHO pending
Denies any prior known history of lung disease, lifelong non-smoker
H/o DVT in past, CTA neg for PE
DVT ppx: LMWH
-
Critical care statement: A total of 35 minutes of critical care time was provided for this patient today. This includes management of unstable vital signs, evaluation of the patient at bedside, reviewing the patient�s pertinent medical records
including radiographs, microbiology, laboratory evaluations, and��discussion with primary team, consultants, pharmacy, nutrition, physical therapy, case management, charge nurse, critical care nursing, and respiratory therapy.
Diagnostic Data
Chest X-Ray:
CT Scan: CHEST 09/07/25- No findings to suggest central pulmonary embolism. Recent prior esophagectomy with gastric pull-up with accompanying large consolidations in the lower lobes bilaterally most likely representing subsegmental atelectasis and
small bilateral pleural effusions. Mild anterior pericardial thickening, cannot exclude tiny pericardial effusion.
05/02/25- Severe circumferential diffuse esophageal wall thickening. This can be seen with esophagitis or a mural mass. Correlation recent biopsy results. Probable small adjacent hematoma along the right lateral wall of the distal esophagus. No
evidence of esophageal leak. Correlation with outside PET/CT report recommended
Echo: pending
PFT's:
Reports and relevant images were personally reviewed.
Subjective Data
-
Date of Service:
Date of Service: September 10, 2025
Chief Complaint: Pulmonary Follow Up
Objective Data
Data Reviewed
Vital Signs / I&O / Oxygen:
Vital Signs
Temp Pulse Resp BP Pulse Ox
98.2 F 130 16 103/89 100
09/10/25 11:05 09/10/25 06:30 09/10/25 06:30 09/10/25 06:30 09/10/25 11:16
Intake and Output
09/09/25 09/10/25 09/11/25
06:59 06:59 06:59
Intake Total 1200 / 1200 1160 / 1160 313.5 / 313.5
Output Total 1250 / 1250 1250 / 1250 50 / 50
Balance -50 / -50 -90 / -90 263.5 / 263.5
SaO2 100
Nasal Cannula flow liters per 6
minute
Physical Exam
General: Respiratory Distress (mild), Comfortable and Chills (negative)
HEENT: Normocephalic and Anicteric
Cardiovascular: Irregular Rhythm, Peripheral Edema (negative) and Other (Tachycardic)
Respiratory: Wheeze (negative), Crackles (bilateral), Rhonchi (bilateral), Accessory Resp Muscle Use (mild), Stridor (negative) and Other (Diminished breath sounds bilaterally with poor inspiratory effort)
GI: Soft, Non Tender, Normal Bowel Sounds and Feeding Tube (jejunostomy tube with ostomy bag covering stoma and collecting bilious fluid)
Neurology: Awake (Drowsy) and Tremors (negative)
Skin: Warm, Dry, Cyanosis (negative), Jaundice (negative) and Rash
Labs/Micro/Reports
Lab Data
09/10/25 04:58
09/10/25 04:58
Microbiology
09/07/25 18:24 Blood/Venous Blood Culture - Preliminary
No Growth in 48 hours- Final report to follow
09/07/25 18:22 Blood/Venous Blood Culture - Preliminary
No Growth in 48 hours- Final report to follow
09/07/25 12:26 Nasal Swab Influenza Types A & B (AG) - Final
Negative for Influenza A & B, NAAT
Negative results must be combined with clinical observations
and patient history.
Nucleic Acid Amplification test (NAAT)performed on the
[employer] platform.
09/07/25 12:26 Nasal Swab Respiratory Syncytial Virus Ag - Final
Negative for Respiratory Syncytial Virus.
A false negative result may be obtained with a specimen
collected early in the acute phase. If symptoms persist, a
new specimen should be tested.
[2025-09-10] MEDS: DILAUDID 1 MG IV ×3 (11:59→19:32)
[2025-09-10] MEDS: NEO-SYNEPHRINE 250 IV (12:18)
--- NOTE | 2025-09-10 12:25 | W.PN.UPDATE ---
Update Note
Progress Note Update
I saw and evaluated the patient with the resident.
A/P:
# Acute hypoxic respiratory failure
# Sepsis secondary to aspiration pneumonia
O2 weaned from 12 to 8L NC, cont to wean as tolerated
Cont broad spectrum Abx with Vanc/Zosyn/Azithromycin
ID CS
# Septic shock vs cardiogenic shock with A fib RVR
Levophed -> Red per Intervisit
Upgrade to ICU
Monitor BP
# A fib RVR
Amiodarone drip started , cont
HR improved from 190 to 120
Follow echo
Card on board
# BL moderate pleural effusion
IR consulted for thoracentesis eval
# Esophageal squamous cell carcinoma
# Status post esophagectomy
# J-tube dysfunction
Pt follows with Dr. Heather Rodgers at [facility]; s/p chemo and XRT
Had esophagectomy 3 weeks ago with anastomosis
Leakage around J tube, will ask IR to eval
for now, hold tube feed
DW , son and daughter at bedside extensively. Answered all questions.
DW RN
DW Curriculum Supervisor / Card
Total Critical Care Time__50__ minutes. I was immediately available to the patient and staff. I personally examined, reviewed labs, diagnostic images/reports, interpretations, treatment plans, discussed patient care with other providers and
family or caregivers (if patient is unable to make decisions), entered orders as appropriate and documented the medical record.
--- NOTE | 2025-09-10 13:06 | CON.ID ---
Consultation
-
Date/Time Consultation Requested: 09/10/25 12:03
Date/Time Consultation Performed: 09/10/25 13:07
Requesting Provider: Dr Bentley
Performing Provider: Dr Vargas
Reason for Consultation: leukocytosis
Chief Complaint / Past History
Chief Complaint
cough and back pain
History of Present Illness
Ms Thomson is a 64 year old feamle with history of esophagectomy for SCC (s/p chemo/XRT) three weeks prior to arrival at [facility], J-tube who presented to the hospital 09/07 for diffuse back pain which began after a coughing fit. After the coughing she
developed diffuse back pain bilaterally with some chest wall pain as well. Took tramadol without improvement. Diet was advanced the week before arrival and there has been some coughing with sips. On arrival denied: dyspnea, fevers, abdominal
pain, weakness, dysuria. J tube at [facility] had 12F Jtube with ostomy bag to contain leakage placed at surgeons office last week, inner retention balloon not infilated due to pain, larger tube was previously removed due to too much pain. Reportedly
patient had imaging of the chest last week at [facility] that was normal.
On arrival she was afebrile, bp stable, initially on room air however with increasing o2 requirements to 6L WBC 14.3, hemoglobin 10.4, sodium 130.� procalciotonin 16.2 while cr was 0.5, probnp initially 470, lactic acid 2.8 peaked at 3.8 now 1.5,
ECG with sinus tachycardia, right sided intraventricular conduction delay and T wave inversions in the anterolateral leads.� CT PE no pulmonary emboli, but subsegmental atelectasis and small bilateral effusions unchanged from previous studies, mild
anterior pericardial thickening. covid and influenza negative, blood cultures x2 obtained, rsv ag negative, Started on ceftriaxone and azithromycin, After arrival J-tube was noted to be profusely leaking. IR was consulted for tube malfunction.
09/08 she has further increased O2 requirements to 8L NC, she was noted to have bilious fluid from her J-tube, given that patient has too much pain with retention balloon inflation they were unable to address the leakage. 09/09 she had progressive
leukocytosis to 20.8, she was persistently hypotensive and levophed was started, CXR was notable for large airspace consolidations and moderate bilateral pleural effusions and IR was consulted for bilateral thoracentesis - these are currently
pending. patient was accepted for transfer to [facility] bed pending, sputum culture ordered, started on amiodarone for afib, Antibiotics were changed to vancomycin, zosyn, azithromycin 09/10 further progression of leukocytosis to 38, hgb stable at 8.5,
plt 166, l shift noted, na 136, cr 0.9, t bili 0.4, ast 33, alt 23, alk phos 107, ldh 253, transitoned to neosynephrine currently at 60 mcg/min, blood cultures remain no growth at 48 hours, patient had opiates earlier this shift and was not
responsive to questions, history obtained by chart review. ID is consulted for assistance with management.
Past History
Additional Past Medical History:
afib
Chronic dysphagia status post EGD 04/26/2025-large fungating/ulcerating mass found in the middle third of the esophagus
Path positive for invasive squamous carcinoma, status post esophagectomy 3 weeks ago
Follows at [facility], status post J-tube
dvt left arm (2000)
visceral tear right eye
melanoma s/p removal 2007,2012
hypertension
hyperlipidemia
Appendectomy
Additional Past Surgical History:
as per hpi
J tube
benign breast bx 1976
Allergy History:
meperidine Allergy (Verified 09/07/25 15:27)
Rash
morphine Allergy (Verified 09/07/25 15:27)
Rash
oxycodone Allergy (Verified 04/26/25 12:40)
Rash
Medications Reviewed: Yes
Social History
Tobacco: Non-Smoker
Alcohol: None
Drug: None
Family History
Family History: Not Pertinent
Review of Systems
Review of Systems
Constitutional: Denies Fever, Weight Loss, Night Sweats or Chills
EENT: Reports No Symptoms
Respiratory: Reports Cough (productive of clear, frothy sputum, nonbloody); Denies Hemoptysis or Trouble Breathing
Cardiac: Reports Chest Pain; Denies Diaphoresis, Palpitations or Syncope
Abdomen/GI: Reports Vomiting; Denies Abdominal Pain, Nausea, Diarrhea, Constipated or Black Stools
: Reports No Symptoms
Musculoskeletal: Reports No Symptoms
Skin: Reports No Symptoms
Neurological: Reports No Symptoms
Endocrine: Reports No Symptoms
Hematologic/Lymphatic: Reports No Symptoms
Psych: Reports No Symptoms
Vital Signs
Temp Pulse Resp BP Pulse Ox
98.2 F 138 33 96/65 92
09/10/25 11:05 09/10/25 11:30 09/10/25 11:30 09/10/25 11:30 09/10/25 11:30
Physical Exam
Physical Exam
Constitutional: No Acute Distress
Cardiovascular: Regular Rate and S1/S2; Negative Murmur or Rub
Pulmonary: Clear and Symmetric; Negative Wheezes, Rales or Rhonchi
Gastrointestinal: Soft, Non Tender, Non Distended and Normal Bowel Sounds
Skin: Warm and Dry; Negative Rash or Jaundice
Lines: Other (j tube with brown, feculent drainage around the tube.)
Lab / Diagnostic Study Results
09/10/25 04:58
09/10/25 04:58
Abs Immat Gran (auto) 1.6 10^3/uL (0-0.05) H 09/10/25 04:58
Absolute Neuts (auto) 35.0 10^3/uL (1.4-6.5) H 09/10/25 04:58
Absolute Lymphs (auto) 0.3 10^3/uL (1.2-3.4) L 09/10/25 04:58
Absolute Monos (auto) 1.3 10^3/uL (0.1-0.6) H 09/10/25 04:58
Absolute Basos (auto) 0.0 10^3/uL (0-0.2) 09/10/25 04:58
Total Counted 100 09/09/25 16:36
Immature Gran % 4.2 % (0-0.5) H 09/10/25 04:58
Neutrophils % 91.7 % (42.2-75.2) H 09/10/25 04:58
Lymphocytes % 0.7 % (20.5-51.1) L 09/10/25 04:58
Monocytes % 3.4 % (1.7-9.3) 09/10/25 04:58
Eosinophils % 0.0 % (0-6) 09/10/25 04:58
Basophils % 0.0 % (0-2) 09/10/25 04:58
Abs Neuts (Manual) 20.3 10^3/uL (1.4-6.5) H 09/09/25 16:36
Segmented Neutrophils 64 % (42-75) 09/09/25 16:36
Band Neutrophils 28 % (0-3) H D 09/09/25 16:36
Lymphocytes (Manual) 1 % (20-51) L 09/09/25 16:36
Lactic Acid 1.5 mmol/L (0.7-2.0) 09/09/25 16:36
Procalcitonin 16.16 ng/ml (0.0-0.25) H* 09/07/25 13:44
Thoracentesis done on the left
Laboratory Tests
09/10/25 09/10/25
04:58 14:10
Serum Lactate Dehydrogenase 253 H
Fluid pH 7.13
Fluid WBC 08896
Fluid Mononuclear Cell 14.9
Fl Polymorphonucl Cell 85.1
Fluid Other Cells Not Reportable
Fluid Diff Path Review Not Reportable
Fluid Glucose 87
Fluid Total Protein 3.0
Fluid LDH 2884
Microbiology Results
Micro:
09/07/25 18:24 Blood Culture - Preliminary
Blood/Venous No Growth in 48 hours- Final report to follow
09/07/25 18:22 Blood Culture - Preliminary
Blood/Venous No Growth in 48 hours- Final report to follow
09/09/25 08:51 MRSA Screen - Pending
Nose
09/07/25 12:26 Influenza Types A & B (AG) - Final
Nasal Swab Negative for Influenza A & B, NAAT
Negative results must be combined with clinical observations
and patient history.
Nucleic Acid Amplification test (NAAT)performed on the
[employer] platform.
09/07/25 12:26 Respiratory Syncytial Virus Ag - Final
Nasal Swab Negative for Respiratory Syncytial Virus.
A false negative result may be obtained with a specimen
collected early in the acute phase. If symptoms persist, a
new specimen should be tested.
Assessment / Plan
Aspiration Pneumonia vs Community Acquired Pneumonia
Shock suspect septic possibly cardiogenic
H/o esophagectomy - 3 weeks prior to arrival
J tube placement for feeding
- 09/09 [employer] strict NPO
- RN reports that tube feeding immediately pools on the skin; we do not appear to have good options for enteral access, if patient remains in house this may need to be discussed with her surgeons
- remains on pressors was transitioned to willie-synephrine today
- sputum culture if able to obtain one
- pleural fluid from the L
- pH consistent with empyema; exudative effusion
- 650 cc's of fluid was removed, if there is sufficient residual would consider chest tube placement
- added on aerobic culture
- 09/07 blood cultures x2 no growth
- covid/influenza/rsv negative
- mrsa screen pending
- follow up Echo
- continue vancomycin for now, d2 - if mrsa screen negative can stop
- continue zosyn for present, d2
- continue azithromycin, d4
- note patient accepted in transfer at [facility], pending bed
--- NOTE | 2025-09-10 14:05 | PTCARENOTE ---
Rec'd pt this AM with some delirium, climbing OOB, taking off O2. Valium given with good result. Medical team at bedside reviewing treatment plan with pt and family. Rec'd pt on levo at 4mcg, able to titrate to 3mcg. Order changed to Red. Red
currently at 60mcg/min. Amio at 0.5mg/min. Pt become more oriented as day progressed, tearful at times. Complaining of pain. PRN pain meds given. J tube continues to drain dark brown fluid. O2 was weaned to 7L but during IR bedside ultrasound and
thoracentesis O2 dropped and pt is now requiring 10-12L MF. Pt now with ICU orders.
--- NOTE | 2025-09-10 14:13 | PHA.VAN.FU ---
Vancomycin Assessment / Plan
- Assessment
Renal Function: SCR Increasing (slight increasing trend 0.7 --> 0.9 and BUN elevated)
WBC's are: Trending Up
In the past 24 hrs, patient has been: Afebrile
Concomitant Antimicrobials: piperacillin/tazobactam, azithromycin
- Dosing Plan
Adjust Regimen to: dosing by level
Dosing Comments: both SCR & BUN slowly increasing
- Monitoring Plan
Random Level: 09/11 0600
- Follow Up
Pharmacy will continue to follow.
Vancomycin Follow UP
- -
Patient Age: 64
Patient Sex: Female
Vancomycin Day #: 2
Indication: Pulmonary/Respiratory
Requesting Provider: Dr. Kapoor
Pertinent Antimicrobial Allergies:
no pertinent antibiotic allergies
Height / Weight:
Height 5 ft 6 in
Actual Weight 69.3 kg
IBW in k.3
Pertinent Past Medical History: Esophageal SCC, J-tube
- Vital Signs / Lab Results
Temp Pulse Resp BP Pulse Ox
98.2 F 138 33 96/65 92
09/10/25 11:05 09/10/25 11:30 09/10/25 11:30 09/10/25 11:30 09/10/25 14:01
Lab Results - Hematology
09/08/25 09/09/25 09/09/25
03:33 04:51 16:36
WBC 9.3 20.8 H 22.1 H
Band Neutrophils 18 H 35 H D 28 H D
09/10/25
04:58
WBC 38.1 H
Band Neutrophils
Lab Results - Chemistry
09/08/25 09/09/25 09/09/25
03:33 04:51 16:36
BUN 29 H 41 H 44 H
Creatinine 1.0 0.7 0.7
Estimated Creat Clear 53 76 76
Albumin 2.1 L D 2.6 L 2.4 L
09/10/25
04:58
BUN 47 H
Creatinine 0.9
Estimated Creat Clear 59
Albumin 2.4 L
09/07/25 09/07/25 09/08/25
16:17 23:54 03:33
Lactic Acid 2.8 H 3.8 H 2.5 H
09/09/25
16:36
Lactic Acid 1.5
Microbiology Results
09/07/25 18:24 Blood Culture - Preliminary
Blood/Venous No Growth in 48 hours- Final report to follow
09/07/25 18:22 Blood Culture - Preliminary
Blood/Venous No Growth in 48 hours- Final report to follow
--- NOTE | 2025-09-10 14:32 | PN.CDI ---
CDI
- -
CDI:
Physician Documentation Request
Admit Date: 09/10/25 08:[address] Bentley,
[facility] is using an adapted version of the 2016 Third International Consensus Definitions for Sepsis and Septic Shock (Sepsis-3) where sepsis is defined as life threatening organ dysfunction caused by a deregulated host response to infection.
Please reference the official [facility] Sepsis Recognition Tool for further information, which can be found on the Intranet under Infection Prevention.
Clinical Indicators:
Patient admitted with acute hypoxic respiratory failure.
09/07 H & P, 'Acute hypoxemic respiratory failure.� Unclear cause though differentials include CHF, ACS, CAP/aspiration, viral infection among others'
09/08 PN, 'Sepsis secondary to aspiration pneumonia'
Lactic acid level on admission/trend:
09/07/25 09/07/25 09/08/25
16:17 23:54 03:33
Lactic Acid 2.8 H 3.8 H 2.5 H
Based on your medical judgment, can you please clarify whether or not the above organ dysfunction is related to or due to sepsis?
Sepsis due to aspiration pneumonia with organ dysfunction of Acute Hypoxic Respiratory Failure & lactic acidosis, POA
Sepsis due to aspiration pneumonia with organ dysfunction of Lactic Acidosis only, POA
Other (please specify)
Clinically unable to determine��
Use of terms such as suspected, likely, concern for, or probable (associated with a specific diagnosis that is being evaluated, monitored, or treated as if it exists) are acceptable and can be coded in the inpatient setting when documented at the
time of discharge.
Please use your independent medical judgement in providing your response.
Thank you,
REKHA Paul RN
CDI Specialist
available via tiger text
[2025-09-10 14:43] LABS: Body Fluid Second Tech ASW
--- NOTE | 2025-09-10 14:51 | PN.CDI ---
CDI
- -
CDI:
Physician Documentation Request
Admit Date: 09/10/25 08:16
Dear Doctor Sheree,
Clinical Indicators:
Patient admitted with acute hypoxic respiratory failure.
09/09 Patient transferred to ICU, possible septic shock.
09/10(06:36) RN note, 'midflow down to 6 liters....pt varied from lethargic to waking up in pain'
09/10 PN, '.. then developed hypotension requiring pressors, AMS...Pt is agitated and delirious, trying to get out of bed. She is intermittently arousable and generally able to follow commands.'
Based on the above, could you clarify which, if any of the following, is the most likely etiology of the confusion/altered mental status.
Acute Metabolic Encephalopathy
Acute Delirium only
Other, please specify
Use of terms such as suspected, likely, concern for, or probable (associated with a specific diagnosis that is being evaluated, monitored, or treated as if it exists) are acceptable and can be coded in the inpatient setting, when documented at the
time of discharge.
Thank you,
REKHA Paul RN
CDI Specialist
available via tiger text
Please use your independent medical judgment in providing your response.
--- NOTE | 2025-09-10 15:29 | CM ---
F/U: Patient is in rapid A-fib, unstable to transfer, now this Hospital Team will be dealing with the J-tube that she received from [facility] that has become a problem. Patient moving to the ICU due to needing pressors. IMM verbally completed with
as well as providing emotional support. PLAN: TBD.
--- NOTE | 2025-09-10 16:01 | WOUNDNOTE ---
WO RN note: Patient admitted with back pain and pleural effusion s/p chemo.
See H&P for complete history. Lives with .
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 Heather Mckenzie) with J-tube in place, hypertension, dyslipidemia, H/O melanoma x 2, S/P Appendectomy presenting to
the hospital today with a complaint of diffuse back pain.�
Wound Location and type/assessment: Patient admitted with: Sacral/buttocks DTI, dark maroon clusters, no drainage. LLQ abdomen J tube site leaking bilious drainage, causing red excoriation to skin. Nurse Lyon and Monica report tube feeds come
right back out and unable to inflate balloon. Nurse held tubing secure when current leaking pouch removed to assess site. Despite this tube fell out on own, nurse showed tubing to resident. Patient is waiting for transfer to [facility] to replace
feeding tube but unstable at moment for transfer. L hip is blanchable pink.
Appetite:NPO.
Pressure redistribution devices in place: On Air mattress, Pillow under calves. Foams applied to intact heels.
Plan: Silicone foam applied to sacrum and repositioned patient onto L semi side lying position. J Tube site applied skin prep then cut pieces of Exuderm thin to excoriated area on abdomen. Abena seal applied around tube site opening then 2 piece 2
3/4' flat [place] drainable pouch. Nurse Lyon updated on the above.
Will confirm orders with hospitalist. Updated care plan and will follow as needed.
Note to case management of equipment requested for discharge:
Recommend follow up at wound care center upon discharge.
--- NOTE | 2025-09-10 16:10 | PTCARENOTE ---
during wound care, pt's J tube fell out. It was about 6cm from base. Dr. Bentley present and called [facility] to verify length of tube. They stated J tube was placed thru the skin to jejunum. And balloon was cut off because she said 'it hurt her'.
ordered red rubbers to place in site so it does not close. Awaiting orders.
[2025-09-10] MEDS: LOVENOX 40 MG SC (17:18)
--- NOTE | 2025-09-10 17:25 | CM ---
F/U: MARCEL Meza asked Hospitalist Team in the late AM if we are moving forward with the transfer to [facility] and told unlikely then MARCEL found out patient is unstable and transferring to the ICU. Later in the day around 4:40pm, [facility] must have got
a hold of this Hospitalist Team and stated they wanted the patient for transfer, but still needs Authorization.
MARCEL Meza finally reached [employer] after 4 attempts before they closed, faxed additional clinical, and asked for this to be expedited.
PENDING AUTH (w/ Clinical FAXED):#[id number].
MARCEL had Hospital Team Resident call [facility], who initially said that they will not accept pending, but then called back to say they will. Hospitalist Team Resident will work on the transfer and tell the family. PLAN: Transfer to [facility].
--- NOTE | 2025-09-10 17:59 | CM ---
Call returned to Lin in admissions at [facility]. I made her aware that pending auth Pending ref # [id number] was obtained yesterday. She stated that she is unable to see pending auth in [facility] system([employer]). Made her aware that patient
is now in ICU. She asked me to hold and then came back on to the phone to say that they are willing to accept the patient with the pending auth that we provided. I provided the transfer center at [facility] the phone number for the ICU to call to
obtain updated clinical information. Update to MARCEL, who stated that he provided [facility] additional clinical information for the auth.
--- NOTE | 2025-09-10 18:00 | PTCARENOTE ---
Rec'd patient from IMU around 1645. Patient disoriented. Restless and trashing in bed. Moaning and c/o back pain. PRN Valium administered. NSR, rate in the 80-90's. Amio infusing through left SQ port. Red infusing through RDL PICC for MAP >65. Pulse
ox 97-98% on 12L MF. Weaned for 10L. Jtube dislodged around 1545 in IMU. Per recommendation of [facility], drainage bag placed on top. Johansen in place for acute retention. Patient's and daughter at bedside. Resident at bedside to update on transfer
to [facility].
[2025-09-10 20:21] LABS: B.E. 1.5 mmol/L; HCO3 25.9 mmol/L (21-28); O2 Saturation % 100.0 % (94-98); PCO2 39 mmHg (32-35); PO2 176 mmHg (83-108)
[2025-09-10] MEDS: LR 1000 IV (20:59)
--- NOTE | 2025-09-10 21:12 | PTCARENOTE ---
Received pt from previous RN. Pt is AAOx1 (self), lethargic, confused/forgetful, anxious, restless. B/l mitts in place, pt pulling O2 off. Pt frequently reoriented. NSR on the monitor, MAP goal >65, Red and Amio gtts (see worklist). Pt on 10L
midflow O2 sat 97%, lungs coarse/diminished, AU and at rest, tachypneic, orthopneic. Right nare NG tube inserted at 65 cm to low intermittent suction. Jtube out drainage bag over top intact. Johansen in place. LR infusing at 100 ml/hr. PRN Dilaudid
given for back pain (see MAR). CT scan completed. Mouth care provided. Bed alarm in place. Call skinner in reach. Safe environment maintained.
[2025-09-11] VITALS (20 sets, daily range): BP systolic 97–154; BP diastolic 58–93; BMI 25.7
[2025-09-11] MEDS: LR 500 IV ×2 (00:38→10:18)
--- NOTE | 2025-09-11 00:42 | PTCARENOTE ---
Systems reviewed, no new changes in assessment. Pt yelling out, pt reoriented. Emotional support provided. B/l wrist restraints in place. Safe environment maintained.
[2025-09-11] MEDS: DILAUDID 1 MG IV ×3 (01:22→08:23)
[2025-09-11] MEDS: CORDARONE 259 MG IV (02:31)
[2025-09-11] MEDS: ZITHROMAX 252.5 MG IV (02:54)
[2025-09-11] MEDS: ZOSYN 100 IV ×2 (04:34→10:17)
--- NOTE | 2025-09-11 04:54 | PTCARENOTE ---
Systems reviewed, no new changes in assessment. Red gtt off (see worklist). Pt screaming out, pt states she is in pain, PRN pain medication given (see MAR). AM labs provided. Call skinner in reach. Safe environment maintained.
[2025-09-11 05:08] LABS: Hematocrit 27.1 % (37.0-47.0); Hemoglobin 8.8 g/dL (12.0-16.0); Mean Corp Hgb Conc. 32.5 g/dL (33.0-37.0); Mean Corpuscular Volume 95.1 fL (81.0-99.0); Platelet Count 133 10^3/uL (130-400); Red Cell Dist. Width 16.3 % (11.5-14.5)
[2025-09-11 05:12] LABS: ALT (SGPT) 26 U/L (0-35); AST (SGOT) 23 U/L (14-36); Albumin 2.5 g/dl (3.5-5.0); Alkaline Phosphatase 96 U/L (38-126); Blood Urea Nitrogen 43 mg/dl (7-17); Calcium 9.2 mg/dl (8.4-10.2); Carbon Dioxide 29 mmol/L (22-30); Chloride 107 mmol/L (98-107); Estimated Creatinine Clearance 89 ml/min; Glucose 113 mg/dl (70-99); Potassium 3.8 mmol/L (3.5-5.1); Sodium 138 mmol/L (135-145); Total Protein 5.3 g/dl (6.3-8.2); eGFR > 60.00
[2025-09-11] MEDS: KCL 50 IV (05:25)
[2025-09-11 05:50] LABS: Nucleated Red Blood Cells % 0 %
--- NOTE | 2025-09-11 07:17 | W.PN.INTV ---
Today's Communication / Plan
Recommendations
Wean O2, off pressors now
Add Precedex, stop benzos, lower pain medications, add IV tylenol
s/p thora, pH 7.1 suggesting empyema, ID following
CT reviewed, worsening loculations on left--would consider doing chest tube placement on left with loculations-unless there is preference to do this at [facility] with cardiothoracic eval
NPO for now, monitor salem output
IV amio, defer to cards for further AF management
I reviewed plan of care with family at bedside
Awaiting transfer bed at [facility]
Assessment
-
64-year-old female with history of recently diagnosed esophageal squamous cell carcinoma s/p esophagectomy/J tube at [facility] (follows with Dr. Heather Mckenzie), melanoma resection x 2, presenting to ER with a complaint of diffuse back
pain.� States that she has had intermittent coughing issues since her esophagectomy with a significant episode of coughing prior to arrival.� She had been exclusively using J-tube since May but in the past week her diet was advanced. There had
been some coughing observed with sip trials by the RN. In the ED, was noted to be tachycardic and hypoxemic requiring 6 L O2 though otherwise afebrile and stable.� Initial labs with WBC 14.3, hemoglobin 10.4, sodium 130, chloride 96.� ECG with
sinus tachycardia, right sided intraventricular conduction delay and T wave inversions in the anterolateral leads.� CT PE protocol without signs of pulmonary emboli, showed signs of subsegmental atelectasis and small bilateral effusions unchanged
from previous studies, mild anterior pericardial thickening. Was ordered IV fluids and given 5 mg diazepam and 1 mg IV Dilaudid in the ED. Admitted to for presumed PNA.
Acute hypoxic respiratory failure, O2 alta 84%-currently on 8 L mid flow.
Shock: Septic, on pressors
New onset rapid A-fib
Back and chest discomfort s/p cough
BL loculated effusions w/ compressive atelectasis, suspect empyema, fluid pH 7.1
Elevated proBNP, Leukocytosis, suspected PNA--suspect aspiration/cause
Anemia, likely chronic
Hyponatremia
Hyperglycemia
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
Chronic dysphagia status post EGD 04/26/2025-large fungating/ulcerating mass found in the middle third of the esophagus
Path positive for invasive squamous carcinoma, status post esophagectomy 3 weeks ago
Follows at [facility], status post J-tube
dvt left arm (2000)
visceral tear right eye
melanoma s/p removal 2007,2012
hypertension
hyperlipidemia
Appendectomy
benign breast bx 1976
Plan:
Patient is critically ill: On rapid atrial fibrillation, requiring vasopressors, increased work of breathing with generalized weakness.
Transferred to ICU 09/10
-
Acute hypoxemic respiratory failure: From 12 L down to 8 to 10 L nasal cannula.(No previous history of pulmonary disease.)
Increased work of breathing on exam.
Weak cough effort.
Alert and cooperative. Feels very tired.
-
Shock: Septic/presumed
Renal function is normal
Continue to follow urinary output
Status post IV fluid resuscitation
If remains hypotensive despite heart rate control may consider intermittent albumin-less likely to be effective at this point and patient already has bilateral pleural effusions and third spacing.
Off pressors
-
Rapid A-fib today (09/09) while moving onto the bed miller with help by nursing staff
Persistently tachycardic/hypotensive in shock-Cardizem on hold.
Amiodarone continues
Cardiology following
Echocardiogram pending
- Goal HR <110
- Status post IVF as she may be dry from J-tube leakage and inadequate oral intake
- Defer starting heparin drip to cardiology
Suspect patient has aspiration PNA, diet advanced 1 week prior to admission
CXR/CT obtained indicating bibasilar consolidation w/ compressive atelectasis
Other imaging reviewed from April, but she had recent imaging last week at [facility] per family that was reportedly normal
Diet as per [employer] - on 09/08 they recommended cautious diet initiation with pur�ed solids and mildly thick liquids, with J-tube to be used for nutrition
Aspiration precautions
Currently on broad-spectrum antibiotics: Zosyn/azithromycin
Airway clearance measures (unfortunately she did not tolerate the vest); continue prn nebs
s/p thora, pH 7.1 suggesting empyema
ID consulted, on zosyn
Loculated effusions are worsening on L, may need to consider chest tube placement but will defer to [facility] if she is accepted there by CT surgery
Recent esophagectomy 3 weeks prior
I suspect that her bibasilar consolidations and effusions are related to her recent surgery, although per documentation the patient had recent imaging last week prior to arrival at [facility] which was reportedly normal
Has J-tube in place - tube is leaking as balloon is not inflated; IR consulted but they were unable to help; may need to be handled at [facility] either s/p discharge or as a transfer to their facility
Completed at [place], family has close visits weekly at their offices
The family has concerns about J-tube management and leakage - -> defer to primary team
[facility] declined transferred, now accepted
Remains NPO, NGT in place, monitor output
Bilateral pleural effusions: Likely due to hypoalbuminemia/third spacing.
IR evaluating for possible thoracentesis right or left.
On CAT scans he appears small. Appear bigger on chest x-ray due to low lung volumes.
ProBNP negative on admission
ECHO reviewed, low normal function, RV dysf noted
Denies any prior known history of lung disease, lifelong non-smoker
H/o DVT in past, CTA neg for PE
DVT ppx: LMWH
-
Diagnostic Data
Chest X-Ray:
CT Scan: CHEST 09/07/25- No findings to suggest central pulmonary embolism. Recent prior esophagectomy with gastric pull-up with accompanying large consolidations in the lower lobes bilaterally most likely representing subsegmental atelectasis and
small bilateral pleural effusions. Mild anterior pericardial thickening, cannot exclude tiny pericardial effusion.
05/02/25- Severe circumferential diffuse esophageal wall thickening. This can be seen with esophagitis or a mural mass. Correlation recent biopsy results. Probable small adjacent hematoma along the right lateral wall of the distal esophagus. No
evidence of esophageal leak. Correlation with outside PET/CT report recommended
Echo: 09/10/25- 1. Technically difficult study.
2. Low normal left ventricular systolic function with left ventricular ejection fraction visually estimated 50%. Abnormal septal motion with septal bounce and possible mild hypokinesis of the mid and apical inferior septum.
3. Grade 1 diastolic dysfunction.
4. Enlarged right ventricle with low normal RV systolic function. Estimated pulmonary artery systolic pressure 35 mmHg assuming a right atrial pressure of 15 mmHg. IVC is dilated and does not collapse.
5. Trileaflet sclerotic aortic valve without stenosis or significant insufficiency.
6. Trace mitral regurgitation. Mild tricuspid regurgitation.
PFT's:
Reports and relevant images were personally reviewed.
Critical care statement: A total of 50 minutes of critical care time was provided for this patient today. This includes management of unstable vital signs, evaluation of the patient at bedside, reviewing the patient�s pertinent medical records
including radiographs, microbiology, laboratory evaluations, and��discussion with primary team, consultants, pharmacy, nutrition, physical therapy, case management, charge nurse, critical care nursing, and respiratory therapy.
Subjective Dataa
Subjective Data
Date of Service:
Date of Service: September 11, 2025
Chief Complaint: [place] Follow Up
Subjective:
Transferred to ICU for pressor use 09/10
Now on IV amio, off pressors
Confusion ongoing
Family at bedside
Objective Data
Data Reviewed
Vital Signs / I&O / Oxygen:
Vital Signs
Temp Pulse Resp BP Pulse Ox
98.0 F 92 12 109/60 98
09/11/25 04:41 09/11/25 06:00 09/11/25 06:00 09/11/25 06:00 09/11/25 06:18
Intake and Output
09/10/25 09/11/25 09/12/25
06:59 06:59 06:59
Intake Total 1160 / 1160 1878.3 / 1878.3
Output Total 1250 / 1250 915 / 915
Balance -90 / -90 963.3 / 963.3
SaO2 98
Nasal Cannula flow liters per 10
minute
Physical Exam
General: Other (chronically ill appearing, confused, lethargic)
HEENT: Normocephalic, Anicteric and Other (NGT)
Cardiovascular: S1-S2 and Regular Rhythm
Respiratory: Clear (overall diminished) and Non-Labored Respirations
GI: Soft, Non Distended and NG Tube
Neurology: Awake, Lethargic and Other (confused, not answering appropriately)
Skin: Warm and Dry
Labs/Micro/Reports
Lab Data
09/11/25 04:38
09/11/25 04:38
Laboratory Results
09/10/25
20:15
pH 7.43
pCO2 39 H
pO2 176 H
HCO3 25.9
O2 Delivery Level
Microbiology
09/07/25 18:24 Blood/Venous Blood Culture - Preliminary
No Growth in 72 hours- Final report to follow
09/10/25 14:10 Pleural Fluid Gram Stain - Preliminary
09/07/25 18:22 Blood/Venous Blood Culture - Preliminary
No Growth in 72 hours- Final report to follow
09/09/25 08:51 Nose MRSA Screen - Final
No Methicillin Resistant Staphylococcus aureus isolated.
--- NOTE | 2025-09-11 07:40 | W.PN.HOSP.TC ---
Addendum entered and electronically signed by Ermelinda Wong MD 09/11/25 17:27:
I saw and evaluated the patient independently. I reviewed and discussed the resident�s note and agree with findings and plan as documented by Dr. Bentley.
GENERAL: cachectic female appears acutely ill--pt sitting up, trying to take clothes off and pull out tubes--delirious
HEENT: NC/AT--NGT and O2 NC in place 10L
HEART: regular rate and rhythm, +S1, +S2
LUNGS : crackles bilaterally--dyssynchronous breathing
ABDOM: soft, nontender, distended, no appreciable bowel sounds
EXT: no cyanosis, clubbing, or edema
NEUROLOGIC: not following any commands
: jaquez
Septic shock with end organ damage, possibly secondary to aspiration pneumonia--rising WBC count with lactic acidosis, empyema, hypotension requiring pressors--pressors now off, on 10L O2, precedex started--cultures negative--cont IVF--apprec ID,
testing and regulating technician--cont zosyn and azithromyin--accepted to [facility] with accepting MD of Dr. Mckenzie
Toxic metabolic encephalopathy--Most likely secondary to sepsis, alternative contributing factors include significant opiate pain medication and benzodiazepine use vs. hospital delirium--soft limb restraints--precedex--d/c benzos
Acute hypoxemic and hypercapnic respiratory failure/Worsening BL Pleural effusions/Moderate to large R sided multiloculated pleural effusion--s/p left sided thoracentesis--following ABGs--NPO due to aspiration concerns- Bedside Thora (09/10)-- 650cc
hazy yellow fluid, + Light's Criteria; concern for empyema given pH less than 7.2, gram stain/Cx pending- CT PE study/abd/pelvis -- worsening large to moderate R multiloculated pleural effusion- Patient candidate for chest tube, however given
pending transfer to [facility] will not proceed at this time
CHF/elevated proBNP--proBNP on admission 470, several days later now 6000s--ECHO with normal EF and stage 1 diastolic dysfunction - hypotension in the setting of afib with RVR
Paroxysmal Afib--Likely is driven by pain, hypoxemia, possibly dehydration vs. chronic illness/cancer - Initially Sinus tachy -- now progressed to Afib w/ rates as high as 200s, now hovering 120-140s- [id number] score of 1- Cardizem held for
hypotension requiring pressors- Cardiology following; holding anticoagulation for now- pt converted yesterday to Sinus tach, remains on amio drip- Will start on heparin drip per cardiology recommendations- Continue on telemetry, Avoid AVN blockade
for now
Esophageal squamous cell carcinoma/Status post esophagectomy/J-tube dysfunction- Follows with Dr. Heather Mckenzie at [facility]; s/p chemo and XRT- Had esophagectomy 3 weeks ago with anastomosis, diet has been modified on OP basis to soft and
bite-size- Abides by strict aspiration precautions as OP, 45 degree head of bed elevation- Supplemental tube feeds on hold due to J-tube site leakage. J-tube came out yesterday; spoke with thoracic surgeon Dr. Mckenzie at -- ok to cover with ostomy bag
for leakage for now, pending transfer to for ongoing care and J-tube management- Transport coordinated with [facility] testing and regulating technician to sign out to [facility] testing and regulating technician, transport when ALS services available- Dr. Mckenzie and Dr. Yanes made aware and
are ready to proceed patient
Intractable chest and back discomfort--Unclear cause, presenting complaint; acute onset following coughing fits; possibly muscle strain vs. other MSK cause- ECG did have T wave inversions though troponin negative; chest pain atypical for cardiac
etiology- Initially on on multimodal pain regimen with Dilaudid, cyclobenzaprine, Toradol, tramadol- De-escalated pain medication to 0.25 mg and 0.5 mg Dilaudid as needed for moderate and severe pain respectively with 1000 mg Tylenol 4 times daily-
Discontinue cyclobenzaprine, Toradol, tramadol
anemia of chronic disease--Ferritin elevated at 500, low TIBC. Likely secondary to esophageal SCC- Hemoglobin on arrival 10.4-8.2-8.9 on repeat labs following IVF; no old labs to review- Suspect that her baseline is likely closer to current range-
Will continue to trend CBC and monitor for signs of bleeding- Transfuse as needed for hemoglobin less than 7
Hypocalcemia with vitamin D deficiency- Calcium on arrival was near 9, down to 6.3 following IV fluid resuscitation- Suspect dilutional effect as albumin, total protein and elevated cell parameters downtrended- Calcium and vitamin D supplementation
on hold due to n.p.o.- Continue to trend BMP and ionized calcium
DVT proph-- SQ Lovenox stopped and now on heparin drip
Code status -- Full code
Original Note:
Today's Communication/Plan
-
Pending transfer to for J-tube management/replacement and ongoing care of multiple medical comorbidities; papers signed, Dr. Mckenzie aware, insurance approved transfer, testing and regulating technician signout in the afternoon, pending ALS and transport
Assessment / Plan
Assessment / Plan
Ragini is a 64 year old female with a past medical history of invasive SCC of the esophagus, s/p chemo/radiation (finished July 13 2025) and 3 weeks s/p esophagectomy at [facility], J-tube placement in May 2025, h/o Afib during chemotherapy
(previously on Amiodarone), post-op BL pleural effusions who presented to the [facility] with concerns for acute chest/back pain that started last night, associated with gagging.
#Septic shock with end organ damage, possibly secondary to aspiration pneumonia
Leukocytosis, lactate 3.5/procal 16.16 on admission w/ CT findings of BL pleural effusions. Initially treated for presumed aspiration PNA and sepsis (recently diet advanced after esophagectomy w/ fits of coughing/gagging). Started on IV
Ceftriaxone/Doxy, then developed hypotension requiring pressors, AMS, increasing leukocytosis
- was initially on levophed, size 8 mcg, then down to 4mcg, switched to phenylephrine, now off pressors
- in ICU, pending transfer to [facility]
- received 1500cc bolus -- switch to 100 cc/h LR
- Blood Cx (09/07) -- NG x72h; MRSA neg
- ID following:
- d/c vanco
- Continue with IV antibiotics Zosyn/Azithromycin
# Toxic metabolic encephalopathy
Most likely secondary to sepsis, alternative contributing factors include significant opiate pain medication and benzodiazepine use vs. hospital delirium
- Patient with intermittent agitation, pulling at tubes -- requiring soft restraints
- d/c benzodiazepine
- De-escalate opioid pain medication
- Nurse Discharge adding Precedex drip at 0.2 mcg
- Will continue to monitor and redirect as appropriate prior to transfer
#Acute hypoxemic and hypercapnic respiratory failure
#Worsening BL Pleural effusions
#Moderate to large R sided multiloculated pleural effusion
Presented on room air initially, but eventually required 6 L O2 in the ED
- ABG with pH 7.33, pCO2 50, pO2 78, bicarb 26.4; shallow breathing from pain likely limiting ventilation
- Tx for presumed aspiration PNA/sepsis/septic shock as above
- Continues to have up-trending O2 requirements up to 12 L, possibly from ongoing aspiration versus nonresponse to antibiotic
- Wean oxygen for SpO2 goal >90%, aspiration precautions
- Speech following:
- currently NPO for aspiration concerns
- Pulmonology following
- Bedside Thora (09/10):
- 650cc hazy yellow fluid, + Light's Criteria; concern for empyema given pH less than 7.2, gram stain/Cx pending
- CT pe/abd/pelvis -- worsening large to moderate R multiloculated pleural effusion
- Patient candidate for chest tube, however given pending transfer to [facility] will not proceed at this time
#?CHF/elevated proBNP
proBNP on admission 470, several days later now 6000s.
- worsening BL pleural effusions on CXR
- hypotension in the setting of afib with RVR
- Given 1 dose 20 mg IV Lasix, currently holding due hypotension requiring pressors
- Trend I's and O's, daily weight
- TTE showing LVEF 50%, abnormal septal motion, possible mild hypokinesis of the mid and apical inferior septum, large RV, PASP 35 mmHg, noncompressible IVC (study done while patient on pressors)
#Paroxysmal Afib
Likely is driven by pain, hypoxemia, possibly dehydration vs. chronic illness/cancer
- Initially Sinus tachy -- now progressed to Afib w/ rates as high as 200s, now hovering 120-140s
- [id number] score of 1
- Cardizem held for hypotension requiring pressors
- Cardiology following; holding anticoagulation for now
- pt converted yesterday to Sinus tach, remains on amio ggt
- Will start on heparin drip per cardiology recommendations
- Continue on telemetry, Avoid AVN blockade for now
#Esophageal squamous cell carcinoma
#Status post esophagectomy
#J-tube dysfunction
- Follows with Dr. Heather Rodgers at [facility]; s/p chemo and XRT
- Had esophagectomy 3 weeks ago with anastomosis, diet has been modified on OP basis to soft and bite-size
- Abides by strict aspiration precautions as OP, 45 degree head of bed elevation
- Supplemental tube feeds on hold due to J-tube site leakage. J-tube came out yesterday; spoke with thoracic surgeon Dr. Mckenzie at -- ok to cover with ostomy bag for leakage for now, pending transfer to for ongoing care and J-tube management
- Transport coordinated with [facility] testing and regulating technician to sign out to [facility] testing and regulating technician, transport when ALS services available
- Dr. Mckenzie and Dr. Yanes made aware and are ready to proceed patient
#Intractable chest and back discomfort
Unclear cause, presenting complaint; acute onset following coughing fits; possibly muscle strain vs. other MSK cause
- ECG did have T wave inversions though troponin negative; chest pain atypical for cardiac etiology
- Initially on on multimodal pain regimen with Dilaudid, cyclobenzaprine, Toradol, tramadol
- De-escalated pain medication to 0.25 mg and 0.5 mg Dilaudid as needed for moderate and severe pain respectively with 1000 mg Tylenol 4 times daily
- Discontinue cyclobenzaprine, Toradol, tramadol
#Anemia of chronic disease
Ferritin elevated at 500, low TIBC. Likely secondary to esophageal SCC
- Hemoglobin on arrival 10.4-8.2-8.9 on repeat labs following IVF; no old labs to review
- Suspect that her baseline is likely closer to current range
- Will continue to trend CBC and monitor for signs of bleeding
- Transfuse as needed for hemoglobin less than 7
#Hypocalcemia with vitamin D deficiency
- Calcium on arrival was near 9, down to 6.3 following IV fluid resuscitation
- Suspect dilutional effect as albumin, total protein and elevated cell parameters downtrended
- Calcium and vitamin D supplementation on hold due to n.p.o.
- Continue to trend BMP and ionized calcium
DVT: SQ Lovenox
Code: Full code
Anticipated Discharge: Within 24 hours
Subjective/Interval History
-
Date of Service: September 11, 2025
No acute events overnight. Pt was scheduled for transport last night, but did not go. She is now off phenylephrine ggt. She remains on 8L O2 NC. She is on amio ggt with sinus tachycardia. [facility] tube placed overnight at request of thoracic fellow
Dr. Yanes via phone call due to possible concerns for obstruction. Ostomy bag over J-tube site with minimal drainage. Patient also placed in restraints overnight due to pulling at tubes. She is cooperative during exam but ostensibly altered and
confused.
Objective Data
-
Labs:
Laboratory Results
09/10/25 09/11/25
20:15 04:38
WBC 25.8 H
Hgb 8.8 L
Hct 27.1 L
Plt Count 133
HCO3 25.9
Sodium 138
Potassium 3.8
Chloride 107
Carbon Dioxide 29
BUN 43 H
Creatinine 0.6
Glucose 113 H
Calcium 9.2
Total Bilirubin 0.5
AST 23
ALT 26
Alkaline Phosphatase 96
Vital Signs:
Vital Signs
Temp Pulse Resp BP Pulse Ox
98.1 F 92 12 109/60 98
09/11/25 07:19 09/11/25 06:00 09/11/25 06:00 09/11/25 06:00 09/11/25 06:18
I&O
09/10/25 09/11/25 09/12/25
06:59 06:59 06:59
Intake Total 1160 / 1160 1878.3 / 1878.3
Output Total 1250 / 1250 915 / 915
Balance -90 / -90 963.3 / 963.3
Review of Systems
-
Unable to obtain full review of systems at this time due to: Acuity
History Source: Patient
All other systems: Reviewed and negative
Constitutional: Reports Other (Pain, unable to specify)
EENT: Reports No Symptoms Reported
Respiratory: Reports No Symptoms
Cardiac: Reports No Symptoms
Abdomen/GI: Reports Abdominal Pain
Genitourinary: Reports No Symptoms
Musculoskeletal: Reports No Symptoms
Skin: Reports No Symptoms
Neuro: Reports No Symptoms
Endocrine: Reports No Symptoms
Hematologic / Lymphatic: Reports No Symptoms
Allergy / Immunology: Reports No Symptoms
Physical Exam
-
General: No Apparent Distress, Pain and Appears Chronically Ill
HEENT: Normocephalic, Atraumatic, Moist Mucous Membranes, Anicteric, [place] Conjunctivae, No Ptosis, PERRLA, Nose Appears Normal and Ears Appear Normal
Respiratory: Crackles, Decreased Breath Sounds (decreased breath sounds in the L lower lung boyer) and Other (shallow breaths); Negative Wheezes or Rhonchi
Cardiac: Regular Rhythm, S1/S2 and Tachycardic; Negative Murmur
GI: Soft, Nondistended and Tender; Negative Normal Bowel Sounds (absent bowel sounds)
Rectal: Deferred by Provider
Genito-urinary: Clear Urine and Jaquez
Musculoskeletal: No Clubbing, No Cyanosis and No Edema
Skin: Warm, Dry and IV Access / Catheter Site (PICC line)
Neuro: AO x 3
Psych: Confused and Agitated
--- NOTE | 2025-09-11 08:00 | PTCARENOTE ---
Received pt with eyes closed.Intermittently sleeping and restless.Calling out for Daddy and c/o pain.Unable to state location of pain.Non verbal scale utilized.Medicated with Dilaudid and repositioned for comfort.+GALLOWAY.Oriented to self only.ST
noted.Amiodarone,K rider infusing via Right PICC.Left SQ port intact. Mid flow O2 8 l.Coarse breath sounds throughout.Occasional non productive cough.POX 95%+ tachypnea and orthopnea.NPO.Volant intact draining small amount bilious.Johansen draining
yellow urine.Skin integrity as documented.Pt's daughter and at bedside.Plan of care discussed.
--- NOTE | 2025-09-11 08:51 | W.PN.UPDATE ---
Update Note
Progress Note Update
Received call during afternoon of 09/10 [address] [facility] Dr. Yanes (cardiothoracic fellow) regarding patient's status. At that time patient had converted from afib with RVR to sinus rhythm with HR <100s. She was coming down on levophed to 4mcg, remained on
7L O2 NC and was in the process of transfer to ICU. Her J-tube had also come out during change of dressing. I was informed by Dr. Yanes that we could either have it replaced here, or cover it with an ostomy bag. She reiterated that [facility] was willing
and able to take the patient for further management of J-tube (which had been leaking and with concerns over nonfunction) as well as her other medical comorbidities once she was deemed stable for transfer from out standpoint.
I received another call from Dr. Mckenzie, the thoracic surgeon who operated on Mrs. Yancey who reiterated the same sentiment -- that they were willing and ready to accept Dalila whenever she was deemed ready for transfer. She had additionally been
informed by her admissions/transfer department that an authorization had to be submitted by Kev in order to initiate the transfer. She was made aware of the pts medical situation and still agreed to taking her.
I spoke with CM, as well as out admissions department to clarify insurance authorization of a transfer, which is required for the patient's insurance. MARCEL called [facility] whilst I spoke with the admissions department from [facility] to confirm. [facility] by MARCEL around 5:00pm on 09/10. I gave my personal number to Lin at [facility] admissions. I received a call from Lin around 5:45pm confirming that she was able to see the authorization for transfer on her computer system and
that they could now accept the patient. Discussed with ICU attending who had no concerns with her leaving. I spoke with my attending who had no concerns with the patient leaving at that time. Paperwork was filled out and signed with business unit controller on
ICU thereafter. Discharge orders were placed.
As of the evening of 09/10 pt was pending transfer to [facility] for further management of J-tube dysfunction, potential replacement of J-tube by original surgeons, and overall medical management of this pt whom they know very well.
--- NOTE | 2025-09-11 08:51 | W.PN.ID1 ---
Date of Service
Date of Service: September 11, 2025
Today's Communication
- vancomycin stopped
- continue zosyn for present, d3
- continue azithromycin, d5
Assessment / Plan
Aspiration Pneumonia vs Community Acquired Pneumonia
Shock suspect septic possibly cardiogenic
H/o esophagectomy - 3 weeks prior to arrival
J tube placement for feeding
- 09/09 FLORAL ASSOCIATE strict NPO
- RN reports that tube feeding via J tube immediately pools on the skin
- now with NGT on low suction
- sputum culture if able to obtain one
- pleural fluid from the L
- pH consistent with empyema; exudative effusion
- 650 cc's of fluid was removed, if there is sufficient residual would consider chest tube placement
- aerobic culture - no organisms seen on gram stain, however there were WBCs
- for possible R sided thoracentesis today
- 09/07 blood cultures x2 no growth
- mrsa screen negative
- Echo - EF ~50%, diastolic dysfunction, possible mild hypokinesis of the septum
- vancomycin stopped
- continue zosyn for present, d3
- continue azithromycin, d5
- note patient accepted in transfer at [facility], pending bed
Chief Complaint
-: Leukocytosis and Pneumonia
Subjective / Review of Systems
remains afebrile
pressors titrated off this am
on 7L midflow
has been confused, yelling, required restraints
not responding to questions
Vital Signs / Physical Exam
Vital Signs
Vital Signs
Temp Pulse Resp BP Pulse Ox
98.1 F 92 12 109/60 98
09/11/25 07:19 09/11/25 06:00 09/11/25 06:00 09/11/25 06:00 09/11/25 06:18
Physical Exam
Constitutional: No Acute Distress and Chronically Ill
Cardiovascular: Regular Rate and S1/S2; Negative Murmur or Rub
Pulmonary: Clear and Symmetric; Negative Wheezes or Rales
Gastrointestinal: Soft, Non Tender, Non Distended and Normal Bowel Sounds
Skin: Warm and Dry; Negative Rash or Jaundice
Psychological: Other (mildly agitated)
Objective Data
Lab Data
Lab Results
09/11/25 04:38
09/11/25 04:38
Estimated Creat Clear 89 ml/min 09/11/25 04:38
Lactic Acid 1.5 mmol/L (0.7-2.0) 09/09/25 16:36
Total Bilirubin 0.5 mg/dl (0.2-1.3) 09/11/25 04:38
AST 23 U/L (14-36) 09/11/25 04:38
ALT 26 U/L (0-35) 09/11/25 04:38
Alkaline Phosphatase 96 U/L (38-126) 09/11/25 04:38
Most recent labs reviewed.
Micro Results:
09/07/25 18:24 Blood Culture - Preliminary
Blood/Venous No Growth in 72 hours- Final report to follow
09/10/25 14:10 Body Fluid Culture - Pending
Pleural Fluid Gram Stain - Preliminary
09/07/25 18:22 Blood Culture - Preliminary
Blood/Venous No Growth in 72 hours- Final report to follow
09/09/25 08:51 MRSA Screen - Final
Nose No Methicillin Resistant Staphylococcus aureus isolated.
09/07/25 12:26 Influenza Types A & B (AG) - Final
Nasal Swab Negative for Influenza A & B, NAAT
Negative results must be combined with clinical observations
and patient history.
Nucleic Acid Amplification test (NAAT)performed on the
[employer] platform.
09/07/25 12:26 Respiratory Syncytial Virus Ag - Final
Nasal Swab Negative for Respiratory Syncytial Virus.
A false negative result may be obtained with a specimen
collected early in the acute phase. If symptoms persist, a
new specimen should be tested.
Other: Image Reviewed and Report Reviewed (CT PE abd/pelvis: no PE, moderate multiloculated R pleural effusion, small L pleural effusion w/o change; no gross fluid collections in the abdomen)
--- NOTE | 2025-09-11 09:49 | CM ---
Called placed to Admissions at [facility] ([phone]) , spoke to Asha. Made Asha aware of conversation I had last evening with Lin who stated patient could be sent with pending auth. Asha spoke to Lin who confirmed that she had
gotten approval for them to accept with a pending auth and that the auth number that was provided was a valid auth. Asha transferred me to Bed Flow where I spoke to ed Gomez, made Jason aware of my conversation with admissions that they had told us
that the patient can come with a pending auth and that the auth number we provided to them yesterday was valid. Per Jason , she stated that physician team at [facility] will call our ICU for a clinical update of her current status to ensure they are able
to accept based on her current care needs. Update to .
--- NOTE | 2025-09-11 10:00 | PTCARENOTE ---
Dori Wilson and Huyen at bedside with pt and her daughter and to discuss plan of care and measures to facilitate transfer to [facility].
[2025-09-11] MEDS: PROTONIX IV 40 MG IV (10:16)
[2025-09-11] MEDS: FLEXERIL PO (10:16)
[2025-09-11] MEDS: NSS (PRESERVATIVE FREE) 10 ML IV (10:16)
[2025-09-11] MEDS: PRECEDEX 100 IV ×2 (10:17→10:34)
[2025-09-11] MEDS: OSCAL 500 + D PO (10:18)
--- NOTE | 2025-09-11 10:35 | PTCARENOTE ---
Increased agitation noted.1:[address] for pt safety.Precedex gtt initiated as ordered.
--- NOTE | 2025-09-11 11:12 | W.PN.CARDCBS ---
Today's Communication / Plan
-
Spontaneously converted to sinus rhythm
Continue IV amiodarone and start IV heparin hold off on oral anticoagulation as may need procedure for clogged J-tube at [facility]
She is now off of pressors
Continue broad-spectrum antibiotics
Await transfer to [place]
Discussed with primary service and family at bedside
Impression / Plan
-
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
Impression:
Acute hypoxic hypercapnic respiratory failure, multifactorial
Acute heart failure, unknown EF
Hypotension requiring pressors, resolved
Atrial fibrillation with rapid ventricular response/spontaneously converted to sinus rhythm 09/10/2025
Pleural effusion status post left thoracentesis of 650 mL of hazy yellow pleural fluid 09/10/2025
Pneumonia, aspiration
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
Anemia chronic disease
Echocardiogram 09/10/2025: Ejection fraction 50%, abnormal septal motion with septal bounce and possible mild hypokinesis of the mid and apical inferior septum, enlarged right ventricle with normal systolic function
Recommendations:
She is much improved and is off pressors
Has converted to sinus rhythm
Will continue IV amiodarone is unable to take p.o.
Will start IV heparin and hold off on oral anticoagulation as patient to be transferred to [place] and may need a procedure on clogged J-tube
Continue broad-spectrum antibiotics
Updated family in detail at bedside and discussed with nursing
Discussed with primary service
Progress Note - Small Arms Artillery Repairer
Subjective
Date of Service: September 11, 2025
No complaints
Objective
Labs:
09/11/25 04:38
Labs
Hgb 8.8 g/dL (12.0-16.0) L 09/11/25 04:38
Hct 27.1 % (37.0-47.0) L 09/11/25 04:38
Plt Count 133 10^3/uL (130-400) 09/11/25 04:38
Sodium 138 mmol/L (135-145) 09/11/25 04:38
Potassium 3.8 mmol/L (3.5-5.1) 09/11/25 04:38
BUN 43 mg/dl (7-17) H 09/11/25 04:38
Creatinine 0.6 mg/dL (0.6-1.0) 09/11/25 04:38
Glucose 113 mg/dl (70-99) H 09/11/25 04:38
Vital Signs and I&O:
Vital Signs
Temp Pulse Resp BP Pulse Ox
98.1 F 92 12 109/60 98
09/11/25 07:19 09/11/25 06:00 09/11/25 06:00 09/11/25 06:00 09/11/25 06:18
Vital Signs
Temp Pulse Resp BP Pulse Ox
98.1 F 92 12 109/60 98
09/11/25 07:19 09/11/25 06:00 09/11/25 06:00 09/11/25 06:00 09/11/25 06:18
Intake & Output
09/09/25 09/10/25 09/11/25 09/12/25
06:59 06:59 06:59 06:59
Intake Total 1200 / 1200 1160 / 1160 1878.3 / 1878.3
Output Total 1250 / 1250 1250 / 1250 915 / 915
Balance -50 / -50 -90 / -90 963.3 / 963.3
Physical Exam
Physical Exam
General: Appears chronically ill
Neck: Supple, no JVD, HJR, carotids +2 B/L, no bruits bilaterally.
Heart: Non displaced PMI, RRR, no murmurs, No S3, S4, no rubs.
Lungs: Scattered rhonchi
Extremities: No clubbing, cyanosis or edema bilaterally.
Neuro: Appears chronically ill
--- NOTE | 2025-09-11 11:38 | W.DCSUMMARY ---
Addendum entered and electronically signed by Ermelinda Wong MD 09/11/25 14:33:
Read, reviewed, and agree. See same day progress note for additional details. Time spent coordinating care, DC planning, review of DC plan of care with resident, transition of care, review of records in EMR, med rec, consults, notes, d/w
consultants, nursing, family, and CM = 60 minutes
Original Note:
Discharge Summary
Discharge Data
Date of Admission: 09/10/25
Date of Discharge: 09/11/25
Total time spent discharging patient (in min): >30m
-
Pending Results: Yes
Additional Pending Results:
Fluid Culture/gram stain
Hospital Course
Discharging Physician : Dr. Wong, Dr. Bentley
Disposition : Transfer to [facility]
Primary care physician : Bryan Fulton
Principal Discharge diagnosis : Septic shock, toxic metabolic encephalopathy, possible aspiration pneumonia, acute hypoxemic and hypercapnic respiratory failure, empyema, bilateral pleural effusions, paroxysmal A-fib, intractable back/abdomen pain,
J-tube dysfunction
Chronic Discharge diagnosis : Esophageal squamous cell carcinoma status post esophagectomy, Anemia of chronic disease, hypocalcemia, vitamin D deficiency
Hospital Course :
Ragini is a 64 year old female with a past medical history of invasive SCC of the esophagus, s/p chemo/radiation (finished July 13 2025) and 3 weeks s/p esophagectomy at [facility], J-tube placement in May 2025, h/o Afib during chemotherapy
(previously on Amiodarone), post-op BL pleural effusions who presented to the [facility] with concerns for acute chest/back pain that started last night, associated with gagging.
#Septic shock with end organ damage, possibly secondary to aspiration pneumonia
Leukocytosis, lactate 3.5/procal 16.16 on admission w/ CT findings of BL pleural effusions. Initially treated for presumed aspiration PNA and sepsis (recently diet advanced after esophagectomy w/ fits of coughing/gagging). Started on IV
Ceftriaxone/Doxy, then developed hypotension requiring pressors, AMS, increasing leukocytosis
- was initially on levophed up to 8mcg -- switched to phenylephrine 60mg for less HR effect -- now off pressors, stable pressures
- in ICU, pending transfer to [facility]
- received 1500cc bolus, now on LR 100cc/hr
- WBC counts 14.3 - 9.3 - 20.8 - 22.1 - 38.1 - 25.8
- afebrile throughout stay; one episode of hypothermia 95.9, but wnl rectal temp subsequently
- Blood Cx (09/07) -- NG x72h; MRSA neg
- ID following:
- initially on Vancomycin -- d/c'd prior to discharge
- c/w Zosyn/Azithro
#TME, secondary to sepsis
Likely secondary to acute infection vs. hospital delirium vs. AHRF vs. other
- pt with worsening symptoms of TME throughout hospital stay, confusion, oriented only to person and occasionally place
- d/c BZDs, decreased Dilaudid dosing for pain as below
- due to agitation, pulling at tubes, taking off O2 and trying to get out of bed she was placed on soft restraints -- family asked for restraints to be discontinued
- placed on precedex 0.2mcg for now
#Acute hypoxemic and hypercapnic respiratory failure
#Worsening BL Pleural effusions
Presented on room air initially, but progressed to requiring 6 L O2 in the ED
- ABG on admission with pH 7.33, pCO2 50, pO2 78, bicarb 26.4; shallow breathing from pain likely limiting ventilation at that time
- Tx for presumed aspiration PNA/sepsis/septic shock as above
- Continued to have up-trending O2 requirements up to 12 L, possibly from ongoing aspiration vs. nonresponse to antibiotic vs. agitation/pain
- Wean oxygen for SpO2 goal >90%, aspiration precautions
- Speech following:
- currently NPO for aspiration concerns
- Pulmonology following
- Bedside L sided Thora (09/10):
- 650cc hazy yellow fluid, + Light's Criteria; concern for Empyema, gram stain/Cx pending
- CT pe/abd/pelvis -- moderate to large R multiloculated effusion also concerning for empyema; pt may need chest tube placed. Held off for now pending transfer to and further care by Dr. Mckenzie and thoracic team.
- At time of d/c she was on 10L mid flow with saturations >95%
#?CHF/elevated proBNP
proBNP on admission 470, however following Sinus Tach/Afib repeat BNP levels were in the 6000s.
- worsening BL pleural effusions on CXR
- hypotension in the setting of afib with RVR
- Given 1 dose 20 mg IV Lasix, additional diuresis held due hypotension requiring pressors
-admission weight 76kg, discharge weight 72.2kg
- TTE showing LVEF 50%, abnormal septal motion, possible mild hypokinesis of the mid and apical inferior septum, large RV, PASP 35 mmHg, noncompressible IVC (study done while patient on pressors)
#Paroxysmal Afib
Likely is driven by pain, hypoxemia, possibly dehydration vs. chronic illness/cancer
- Initially Sinus tachy -- then progressed to Afib w/ rates as high as 200s -- started on amio ggt, brought down to 0.5mg/hr with HR hovering 120-140s -- spontaneous conversion to SR in the afternoon of 09/10. She has remained in SR with intermittent
tachycardia into the 110s, mostly around 90s.
- seen by Cardiology -- started on IV Heparin ggt
#Esophageal squamous cell carcinoma
#Status post esophagectomy
#J-tube dysfunction
- Follows with Dr. Heather Mckenzie at [facility]; s/p chemo and XRT ending in July of 2025
- Had esophagectomy 3 weeks ago with anastomosis, diet has been modified on OP basis to soft/bite sized with supplemental tube feeding
- Abides by strict aspiration precautions as OP, 45 degree head of bed elevation -- kept same during hospital stay
- After initiating tube feeds during admission, nursing noticed leakage of contents which exceeded administered tube feeding volume, suggesting obstruction or dysfunction
- During this time patient also had issues of swallowing prompting speech eval which demonstrated concern for aspiration. Patient's worsening mental status excluded further evaluation
- During transfer to ICU J-tube dressing was changed and tube fell out patient's abdomen. Thoracic team at [facility] made aware via phone call; advised to cover with ostomy bag until transfer. Has had minimal leakage from ostomy bag since then.
- NGT placed per recommendations from thoracic team. Minimal output overnight on intermittent suction
#Intractable chest and back discomfort
Unclear cause, presenting complaint; acute onset following coughing fits; possibly muscle strain vs. other MSK cause
- ECG did have T wave inversions though troponin negative; chest pain atypical for cardiac etiology
- Started initially on multimodal pain regimen with Dilaudid, cyclobenzaprine, Toradol, heating pad
- Current pain regimen discharge is 0.25mg Dilaudid moderate pain, 0.5mg Dilaudid for severe pain, 1000mg tylenol kate QID
#Anemia of chronic disease
Ferritin elevated at 500, low TIBC. Likely secondary to esophageal SCC
- Hemoglobin on arrival 10.4-8.2-8.9 on repeat labs following IVF; no old labs to review
- no transfusions needed
- hgb on d/c was 8.8
#Hypocalcemia with vitamin D deficiency
- Calcium on arrival was near 9, down to 6.3 following IV fluid resuscitation
- Suspect dilutional effect as albumin, total protein and elevated cell parameters downtrended
- Ca improved over the course of hospitalization and remained in normal parameters
- She was continued on calcium and vitamin D supplements until she became n.p.o. for concerns of aspiration
Care coordinated with team at (Dr. Mckenzie, Dr. Yanes), Lin in admissions, and between our caseworker and the patient's insurance company [employer] to obtain auth for transfer. Call to be made from Tahmina combs to our ICU network architect manager Dr. Gabriel for
peer-2-peer with [employer] Technician to confirm transfer/bed. Paperwork for transfer signed. Imaging (pending CT, x-rays), echocardiogram, most recent lab reports printed along with the summary to be sent to [facility].
Discharge Plan
-
Patient Disposition: Acute Care Hospital
Condition: Serious
Discharge Orders:
Discharge Patient (As Directed); Ordered 09/10/25
Ordered By: Kyle Bentley
Discharge Date and Time
Print Language: SLOVENIAN
[2025-09-11 11:57] LABS: B.E. 3.7 mmol/L; HCO3 29.7 mmol/L (21-28); O2 Saturation % 99.3 % (94-98); PCO2 49 mmHg (32-35); PO2 105 mmHg (83-108)
[2025-09-11] MEDS: HEPARIN 25000 UNITS/250 ML IV (12:44)
[2025-09-11] MEDS: OFIRMEV 100 IV (12:45)
--- NOTE | 2025-09-11 12:45 | PTCARENOTE ---
Pt assessed.No change in assessment noted.Heparin gtt initiated as ordered.
[2025-09-11 12:55] LABS: Hematocrit 25.5 % (37.0-47.0); Hemoglobin 8.0 g/dL (12.0-16.0); Mean Corp Hgb Conc. 31.4 g/dL (33.0-37.0); Mean Corpuscular Volume 94.8 fL (81.0-99.0); Platelet Count 125 10^3/uL (130-400); Red Cell Dist. Width 16.9 % (11.5-14.5)
[2025-09-11 13:04] LABS: APTT 30.3 Sec (23.4-35.0)
--- NOTE | 2025-09-11 14:18 | PTCARENOTE ---
Report given to Sae LUI from [facility] ICU.[facility] requested that Heparin gtt be discontinued for procedure scheduled at [facility].Dr Wilson made aware.Heparin gtt discontinued at 1408 as per MD order.
--- NOTE | 2025-09-11 16:35 | CM ---
Patient transferred to [facility]. CM will continue to follow for discharge planning needs.
Plan; transfer to [facility].
== END 2025-09-11 16:15 | disposition short-term general hospital (02) | DRG 871 ==
LOC: ICU 08:16
PROVIDERS: Internal Medicine; Internal Medicine Critical Care Medicine; Nurse Practitioner Primary Care; Radiology Diagnostic Radiology; Radiology Neuroradiology; Radiology Vascular & Interventional Radiology; Registered Nurse; ADMITTING PHYSICIAN Internal Medicine; ATTENDING PHYSICIAN Internal Medicine; CONSULT PHYSICIAN Internal Medicine; CONSULT PHYSICIAN Internal Medicine Cardiovascular Disease; CONSULT PHYSICIAN Student in an Organized Health Care Education/Training Program; EMERGENCY PHYSICIAN Student in an Organized Health Care Education/Training Program; FAMILY PHYSICIAN Internal Medicine
PROC: 02HV33Z Insertion of Infusion Device into Superior Vena Cava, Percutaneous Approach (ICD-10-PCS; 2025-09-10)
PROC: 0W9B3ZZ Drainage of Left Pleural Cavity, Percutaneous Approach (ICD-10-PCS; 2025-09-10)
PROC: 0D9670Z Drainage of Stomach with Drainage Device, Via Natural or Artificial Opening (ICD-10-PCS; 2025-09-11)
DX: A41.9 Sepsis, unspecified organism (principal); G92.8 Other toxic encephalopathy; J18.9 Pneumonia, unspecified organism; J69.0 Pneumonitis due to inhalation of food and vomit; J96.01 Acute respiratory failure with hypoxia; R65.21 Severe sepsis with septic shock; J96.02 Acute respiratory failure with hypercapnia; J86.9 Pyothorax without fistula; J98.11 Atelectasis; E87.1 Hypo-osmolality and hyponatremia; K94.13 Enterostomy malfunction; C15.9 Malignant neoplasm of esophagus, unspecified; F05 Delirium due to known physiological condition; M54.9 Dorsalgia, unspecified; I11.0 Hypertensive heart disease with heart failure; E78.5 Hyperlipidemia, unspecified; D63.8 Anemia in other chronic diseases classified elsewhere; R73.9 Hyperglycemia, unspecified; R13.10 Dysphagia, unspecified; E83.51 Hypocalcemia; I48.0 Paroxysmal atrial fibrillation; I45.9 Conduction disorder, unspecified; Y84.8 Other medical procedures as the cause of abnormal reaction of the patient, or of later complication, without mention of misadventure at the time of the procedure; Y92.9 Unspecified place or not applicable; R45.1 Restlessness and agitation; Z78.1 Physical restraint status; Z90.49 Acquired absence of other specified parts of digestive tract; Z99.81 Dependence on supplemental oxygen; Z85.820 Personal history of malignant melanoma of skin; Z92.21 Personal history of antineoplastic chemotherapy; Z88.5 Allergy status to narcotic agent; Z88.8 Allergy status to other drugs, medicaments and biological substances; Z11.52 Encounter for screening for COVID-19; Z86.718 Personal history of other venous thrombosis and embolism; Z92.3 Personal history of irradiation
CPT/HCPCS: 32555; 36600; 71045; 71275; 74018; 74177; 80053; 80202; 82150; 82306; 82607; 82728; 82746; 82805; 82945; 83540; 83550; 83605; 83615; 83735; 83880; 83986; 84100; 84145; 84157; 84484; 85025; 85027; 85730; 86850; 86900; 86901; 87015; 87040; 87070; 87205; 87502; 87807; 87811; 88112; 88305; 89051; 92526; 92610; 93005; 93306; 94640; 94669; 96374; 96375; 96376; 99291; J0282; Q9967